=== PATIENT | male | born 1925 | race Caucasian/White ===

== ENCOUNTER 2016-08-15 14:29 | Emergency (ER) | payer MEDICARE ==
[~2016-08-15] VITALS: Ht 177.8 cm; Wt 69.0 kg
[~2016-08-15 14:29] MED LIST: ATOR80TA41 PO; BAYE81TA PO; CALC500 PO; CENTTAB9 PO; CIPR500T4 PO; FLON0.053; METO25 PO; NITR0.4S SL; RAMI2.5C29 PO; SIMV40TA PO
[2016-08-15 15:05] VITALS: BP 168/82; PULSE 73; RESP 16; TEMP 97.8; O2SAT 98
[2016-08-15 15:10] VITALS: O2SAT 98
[2016-08-15] MEDS ORDERED: TETANUS/DIPHTHERIA TOXOID ADULT 0.5 ML VIAL IM ONE (15:15)
[2016-08-15] MEDS ORDERED: SODIUM CHLORIDE 0.9% FLUSH 5 ML FLUSH IVF PRN (15:15)
[2016-08-15] MEDS ORDERED: ISOS20TA PO (15:18)
[2016-08-15] MEDS ORDERED: VITA100064 PO (15:18)
[2016-08-15] MEDS ORDERED: AMLO5TAB2 PO (15:18)
[2016-08-15] MEDS ORDERED: ATOR1TAB18 PO (15:18)
[2016-08-15] MEDS ORDERED: NITR0.4S SL (15:18)
[2016-08-15] MEDS ORDERED: ASPI-110 PO (15:18)
[2016-08-15] MEDS ORDERED: OSCA200T PO (15:18)
[2016-08-15] MEDS ORDERED: METO25TA3 PO (15:18)
[2016-08-15] MEDS ORDERED: ZANT150T2 PO (15:18)
--- NOTE | 2016-08-15 15:21 | PD ---
HPI . Fall Chief Complaint: Fall Time Seen by Provider: 14:56 Travel History International Travel<30 days: No Contact w/Intl Traveler<30days: No Traveled to known affect area: No History of Present Illness HPI Patient presents ambulatory status post a fall in a parking lot. It sounds like he probably had a syncopal event. He does not recall the fall. He remembers waking up to the paramedics over him. He felt fine and refused transport. He drove himself home. Family then found out what happened and brought him to the hospital. He describes very little pain. He does not know the date of his last tetanus shot. He denies any chest pain, nausea, diaphoresis, shortness of breath. No headache or blurred vision. PFSH Past Medical History Blood Disorders: No Heart Rhythm Problems: No Cancer: No Cardiovascular Problems: Yes High Cholesterol: Yes Chest Pain: No Congestive Heart Failure: No Coronary Artery Disease: Yes Diabetes: No Diminished Hearing: Yes ([place]) Endocrine: No Gastrointestinal Disorders: Yes GERD: Yes Genitourinary: No Hypertension: Yes Implanted Vascular Access Dvce: Yes Musculoskeletal: No Neurologic: No Psychiatric: No Respiratory: No Myocardial Infarction: No Sleep Apnea: No Thyroid Disease: No Ulcer: Yes Tetanus Vaccination: < 5 Years Influenza Vaccination: Yes Past Surgical History AICD: No Body Medical Devices: Cardiac stents Cardiac Surgery: Yes (CABG) Eye Surgery: Yes (Rt. cataract) Pacemaker: No Other Surgery: Yes Social History Alcohol Use: No Tobacco Use: No Substance Use: No Allergies-Medications (Allergen,Severity, Reaction): Coded Allergies: Penicillin (Verified Allergy, Severe, Swelling, 08/15/16) Reported Meds & Prescriptions Reported Meds & Active Scripts Active Reported Atorvastatin (Atorvastatin Calcium) 80 Mg Tab 80 Mg PO HS Isosorbide Mononitrate 20 Mg Tab 30 Mg PO DAILY Take 2 doses 7 hours apart. Metoprolol Tartrate 25 Mg Tab 25 Mg PO DAILY Nitrostat SL (Nitroglycerin) 0.4 Mg Subl 0.4 Mg SL DIRECTED PRN 1 tablet under the tongue as needed for chest pain. Repeat every 5 minutes for a total of 3 DOSES or call 911 if NO relief. Amlodipine (Amlodipine Besylate) 5 Mg Tab 5 Mg PO DAILY Aspirin 81 (Aspirin) 81 Mg Tabdr 81 Mg PO DAILY Vitamin D (Cholecalciferol) 1,000 Unit Tab 5,000 Units PO DAILY Zantac (Ranitidine HCl) 150 Mg Tab 150 Mg PO DAILY Oscal 500/200 D-3 (Calcium Carbonate-Vitamin D) 500-200 Mg-Unit Tab 1 Tab PO DAILY Review of Systems Except as stated in HPI: all other systems reviewed are Neg Eyes: No: Blurred Vision HENT: No: Headaches Cardiovascular: No: Chest Pain or Discomfort Respiratory: No: Shortness of Breath Gastrointestinal: No: Nausea, Vomiting Skin: Positive Other (break in the skin, swelling and bruising on the right side of the face) Neurologic: Positive: Syncope, Headache, No: Focal Abnormalities, Change in Mentation, Slurred Speech, Seizures Physical Exam Narrative GENERAL: [place] 89-year-old who is awake and alert and fully oriented and able to give his own history. SKIN: Warm and dry. Bruising, swelling and an abrasion side of his face. He also has some dried blood on the bridge of his nose. HEAD: Normocephalic. EYES: Pupils equal and round. ENT: No nasal bleeding or discharge. Mucous membranes pink and moist. His nose does not seem to be tender. There is no epistaxis. He has some bruising and swelling to the right side of his upper lip. Teeth are intact. NECK: Trachea midline. Neck is nontender and he has full range of motion of the neck without pain. CARDIOVASCULAR: Regular rate and rhythm. Heart sounds are normal. RESPIRATORY: No accessory muscle use. Lungs are clear. GASTROINTESTINAL: Abdomen soft, non-tender, nondistended. MUSCULOSKELETAL: No obvious deformities. No edema. NEUROLOGICAL: Awake and alert. No obvious cranial nerve deficits. Motor grossly within normal limits. Normal speech. PSYCHIATRIC: Appropriate mood and affect; insight and judgment normal. Data Data Last Documented VS Vital Signs Date Time Temp Pulse Resp B/P Pulse Ox O2 Delivery O2 Flow Rate FiO2 08/15/16 16:20 80 16 152/67 97 Room Air 08/15/16 15:05 97.8 Orders Electrocardiogram (08/15/16 15:07) Basic Metabolic Panel (Bmp) (08/15/16 15:07) Complete Blood Count With Diff (08/15/16 15:07) Ckmb (Isoenzyme) Profile (08/15/16 15:07) Troponin I (08/15/16 15:07) Urinalysis - C+S If Indicated (08/15/16 15:07) Ct Brain W/O Iv Contrast(Rout) (08/15/16 15:07) Ecg Monitoring (08/15/16 15:07) Iv Access Insert/Monitor (08/15/16 15:07) Oximetry (08/15/16 15:07) Sodium Chloride 0.9% Flush (Ns Flush) (08/15/16 15:15) Tetanus/Diphtheria Tox Adult (Tetanus/Di (08/15/16 15:15) Ice/Cold Pack (08/15/16 15:07) Ct Facial Bones W/O Iv Cont (08/15/16 15:22) CKMB (08/15/16 15:25) CKMB% (08/15/16 15:25) Labs Laboratory Tests Test 08/15/16 15:25 White Blood Count 9.8 TH/MM3 Red Blood Count 2.68 MIL/MM3 Hemoglobin 8.9 GM/DL Hematocrit 27.3 % Mean Corpuscular Volume 101.9 FL Mean Corpuscular Hemoglobin 33.4 PG Mean Corpuscular Hemoglobin 32.8 % Concent Red Cell Distribution Width 17.3 % Platelet Count 158 TH/MM3 Mean Platelet Volume 9.1 FL Neutrophils (%) (Auto) 71.2 % Lymphocytes (%) (Auto) 16.4 % Monocytes (%) (Auto) 11.0 % Eosinophils (%) (Auto) 0.9 % Basophils (%) (Auto) 0.5 % Neutrophils # (Auto) 7.0 TH/MM3 Lymphocytes # (Auto) 1.6 TH/MM3 Monocytes # (Auto) 1.1 TH/MM3 Eosinophils # (Auto) 0.1 TH/MM3 Basophils # (Auto) 0.0 TH/MM3 CBC Comment DIFF FINAL Differential Comment Sodium Level 146 MEQ/L Potassium Level 4.2 MEQ/L Chloride Level 113 MEQ/L Carbon Dioxide Level 22.2 MEQ/L Anion Gap 11 MEQ/L Blood Urea Nitrogen 73 MG/DL Creatinine 2.50 MG/DL Estimat Glomerular Filtration 24 ML/MIN Rate Random Glucose 127 MG/DL Calcium Level 8.9 MG/DL Total Creatine Kinase 159 U/L Creatine Kinase MB 3.2 NG/ML Troponin I 0.02 NG/ML MDM Medical Decision Making Medical Screen Exam Complete: Yes Emergency Medical Condition: Yes Interpretation(s) EKG shows atrial fibrillation with a controlled ventricular response. EKG is unchanged from previous. Differential Diagnosis My differential diagnosis of syncope includes but is not limited to cardiac arrhythmia, hypovolemia, anemia, neurological catastrophe. Differential diagnosis of facial trauma includes contusion/abrasion, facial fracture. Narrative Course Patient presents with his family for the evaluation of syncope and for injury sustained as a result of the syncope. Labs are remarkable for an H&H of 8.9 and 27.3. It is really not that much different from his H&H in December 2014. BUN is 73 creatinine is 2.5. His creatinine is actually better than the most recent one in our system. Cardiac enzymes are negative. CT head is negative for acute findings. CT of facial bones is also negative. I have discussed disposition options with the patient and his family. The patient would like to go home. At his age, I think that that is a reasonable request. Diagnosis Primary Impression: Syncope Qualified Code: R55 - Syncope, unspecified syncope type Additional Impression: Facial contusion Qualified Code: S00.83XA - Facial contusion, initial encounter Patient Instructions: Facial Contusion (ED), General Instructions Disposition: 01 DISCHARGE HOME Condition: Stable Erica Garcia MD Aug 15, 2016 15:21
[2016-08-15 15:31] LABS: BASOPHIL % 0.5 % (0.0-2.0); EOSINOPHIL # 0.1 TH/MM3 (0-0.4); EOSINOPHIL % 0.9 % (0.0-4.0); HEMATOCRIT 27.3 % (39.0-51.0); HEMO FLAGS DIFF FINAL; LYMPH % 16.4 % (9.0-44.0); LYMPHOCYTE # 1.6 TH/MM3 (1.0-4.8); MEAN CELL VOLUME 101.9 FL (80.0-100.0); MEAN CORPUSCULAR HEMOGLOBIN 33.4 PG (27.0-34.0); MEAN CORPUSCULAR HGB CONC 32.8 % (32.0-36.0); NEUT % 71.2 % (16.0-70.0); PLATELET COUNT 158 TH/MM3 (150-450); RED BLOOD COUNT 2.68 MIL/MM3 (4.50-5.90); RED CELL DISTRIBUTION WIDTH 17.3 % (11.6-17.2); WHITE BLOOD COUNT 9.8 TH/MM3 (4.0-11.0)
[2016-08-15 15:44] LABS: CHLORIDE 113 MEQ/L (98-107); POTASSIUM 4.2 MEQ/L (3.5-5.1); SODIUM (NA) 146 MEQ/L (136-145)
[2016-08-15 15:48] LABS: ANION GAP 11 MEQ/L (5-15); BICARBONATE 22.2 MEQ/L (21.0-32.0); BLOOD UREA NITROGEN 73 MG/DL (7-18)
[2016-08-15 15:51] LABS: GLOMERULAR FILTRATION RATE 24 ML/MIN (>89)
[2016-08-15 15:54] LABS: CREATINE KINASE 159 U/L (39-308)
[2016-08-15 16:07] LABS: CKMB 3.2 NG/ML (0.5-3.6)
--- NOTE | 2016-08-15 16:15 | RADHPO ---
EXAM DATE/TIME: 08/15/2016 15:44 [facility] COMPARISON: No previous studies available for comparison. INDICATIONS : Synope with fall. Loss of consciousness. Right frontal head trauma. RADIATION DOSE: 65.46 CTDIvol (mGy) MEDICAL HISTORY : Hypertension. SURGICAL HISTORY : Right cataract. ENCOUNTER: Initial ACUITY: 1 day PAIN SCALE: 7/10 LOCATION: Right frontal TECHNIQUE: Multiple contiguous axial images were obtained of the head. Using automated exposure control and adjustment of the mA and/or kV according to patient size, radiation dose was kept as low as reasonably achievable to obtain optimal diagnostic quality images. FINDINGS: CEREBRUM: The ventricles are normal for age. No evidence of midline shift, mass lesion, hemorrha ge or acute infarction. No extra-axial fluid collections are seen. POSTERIOR FOSSA: The cerebellum and brainstem are intact. The 4th ventricle is midline. The cer ebellopontine angle is unremarkable. EXTRACRANIAL: The visualized portion of the orbits is intact. SKULL: The calvaria is intact. No evidence of skull fracture. CONCLUSION: Negative for acute process. Zane Hernandez MD FACR on August 15, 2016 at 16:13 Board Certified Radiologist. This report was verified electronically.
[2016-08-15 16:20] VITALS: BP 152/67; PULSE 80; RESP 16; O2SAT 97
--- NOTE | 2016-08-15 16:26 | RADHPO ---
EXAM DATE/TIME: 08/15/2016 15:44 [facility] COMPARISON: No previous studies available for comparison. INDICATIONS : Syncope with fall. Mid to right facial trauma. RADIATION DOSE: 35.43 CTDIvol (mGy) MEDICAL HISTORY : Hypertension. SURGICAL HISTORY : Right cataract. ENCOUNTER: Initial ACUITY: 1 day PAIN SCORE: 7/10 LOCATION: Right facial TECHNIQUE: Volumetric scanning of the facial bones was performed. Using automated exposure control and adjustme nt of the mA and/or kV according to patient size, radiation dose was kept as low as reasonably achiev able to obtain optimal diagnostic quality images. FINDINGS: CT scan of the facial bones was obtained. There is soft-tissue swelling over the nose without a fracture of the superior inferior nasal spine. Mandible and maxilla are intact. Sinuses are clear. CONCLUSION: Negative CT scan of the facial bones. Zane Hernandez MD FACR on August 15, 2016 at 16:18 Board Certified Radiologist. This report was verified electronically.
--- NOTE | 2016-08-15 22:52 | EKG ---
Date Performed: 08/15/2016 Time Performed: 16:00:30 PTAGE: 89 years EKG: Atrial fibrillation Left anterior fascicular block Possible left ventricular hypertrophy Ab normal ECG PREVIOUS TRACING : 12/18/2014 11.41 Previously sinus bradycardia DOCTOR: Reagan Kidd Interpretating Date/Time 08/15/2016 22:50:04
== END 2016-08-15 17:20 | disposition home or self-care (01) ==
LOC: PHED 14:29
DX: R55 Syncope and collapse (principal); S00.83XA Contusion of other part of head, initial encounter; E78.00 Pure hypercholesterolemia, unspecified; I25.10 Atherosclerotic heart disease of native coronary artery without angina pectoris; I10 Essential (primary) hypertension; K21.9 Gastro-esophageal reflux disease without esophagitis; Z95.1 Presence of aortocoronary bypass graft; I48.91 Unspecified atrial fibrillation; I44.4 Left anterior fascicular block; Z23 Encounter for immunization; Y92.481 Parking lot as the place of occurrence of the external cause; W19.XXXA Unspecified fall, initial encounter
CPT/HCPCS: 70450; 70486; 80048; 82550; 82552; 84484; 85025; 90471; 90714; 93005

== ENCOUNTER 2017-03-03 17:44 | Inpatient (IN) | payer MEDICARE ==
[2017-03-03] VITALS (8 sets, daily range): BP systolic 92–166; BP diastolic 48–92; PULSE 64–120; RESP 18–20; TEMP 98; O2SAT 98–99
[~2017-03-03 17:44] MED LIST changes: +AMLO5TAB2 PO; +ASPI-110 PO; +ATOR1TAB18 PO; -ATOR80TA41 PO; -BAYE81TA PO; -CALC500 PO; -CENTTAB9 PO; -CIPR500T4 PO; -FLON0.053; +ISOS20TA PO; -METO25 PO; +METO25TA3 PO; +OSCA200T PO; -RAMI2.5C29 PO; -SIMV40TA PO; +VITA100064 PO; +ZANT150T2 PO
[2017-03-03] MEDS ORDERED: ASPIRIN 325 MG TAB PO ONE (18:00)
[2017-03-03] MEDS ORDERED: MORPHINE SULFATE 4 MG/ML INJ IV PUSH ONE (18:00)
[2017-03-03] MEDS ORDERED: DILTIAZEM HCL 25 MG/5 ML VIAL IV ONE ×2 (18:00)
[2017-03-03] MEDS ORDERED: SODIUM CHLORIDE 0.9% FLUSH 10 ML FLUSH IVF PRN (18:00)
--- NOTE | 2017-03-03 18:08 | PD ---
HPI Chief Complaint: Chest Pain Time Seen by Provider: 17:55 Travel History International Travel<30 days: No Contact w/Intl Traveler<30days: No Traveled to known affect area: No History of Present Illness HPI The patient is 89 years old. He arrives with chest pain described as a pressure -like sensation retrocardiac and left chest for most of the day. The patient was found by his daughter at home in obvious distress about 1 hour prior to ER arrival and she brought him directly to the ER. He states he felt 9-10/10 chest pain upon arrival to the ER. He's had no shortness of breath. Patient has a history of coronary artery disease with a CABG. Most recent catheterization in our records is from 2005 during which time revascularization with stenting of the heavily calcified distal left main and mid ramus intermediate artery was performed. 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 Patient has been in his normal state of health lately otherwise. He has been compliant with all medications including aspirin. CP radiates to the arms bilaterally. PFSH Past Medical History Hx Anticoagulant Therapy: Yes Blood Disorders: No Heart Rhythm Problems: No Cancer: No Cardiovascular Problems: Yes High Cholesterol: Yes Chest Pain: No Congestive Heart Failure: No Coronary Artery Disease: Yes Diabetes: No Diminished Hearing: Yes ([place]) Endocrine: No Gastrointestinal Disorders: Yes GERD: Yes Genitourinary: No Hypertension: Yes Implanted Vascular Access Dvce: Yes Musculoskeletal: No Neurologic: No Psychiatric: No Respiratory: No Myocardial Infarction: No Sleep Apnea: No Thyroid Disease: No Ulcer: Yes Influenza Vaccination: Yes ?: Not Past Surgical History AICD: No Body Medical Devices: Cardiac stents Cardiac Surgery: Yes (CABG) Eye Surgery: Yes (Rt. cataract) Pacemaker: No Other Surgery: Yes Social History Alcohol Use: No Tobacco Use: No Substance Use: No Allergies-Medications (Allergen,Severity, Reaction): Coded Allergies: Penicillin (Verified Allergy, Severe, Swelling, 03/03/17) Reported Meds & Prescriptions Reported Meds & Active Scripts Active Reported Atorvastatin (Atorvastatin Calcium) 80 Mg Tab 80 Mg PO HS Isosorbide Mononitrate 20 Mg Tab 30 Mg PO DAILY Take 2 doses 7 hours apart. Metoprolol Tartrate 25 Mg Tab 25 Mg PO BID Nitrostat SL (Nitroglycerin) 0.4 Mg Subl 0.4 Mg SL DIRECTED PRN 1 tablet under the tongue as needed for chest pain. Repeat every 5 minutes for a total of 3 DOSES or call 911 if NO relief. Amlodipine (Amlodipine Besylate) 5 Mg Tab 5 Mg PO DAILY Aspirin 81 (Aspirin) 81 Mg Tabdr 81 Mg PO DAILY Vitamin D3 (Cholecalciferol) 1,000 Unit Tab 5,000 Units PO DAILY Zantac (Ranitidine HCl) 150 Mg Tab 150 Mg PO DAILY Review of Systems Except as stated in HPI: all other systems reviewed are Neg General / Constitutional: No: Fever Physical Exam Narrative GENERAL: 89 yo M, WNWD, mild-moderate distress 2/2 pain SKIN: Warm and dry. HEAD: Atraumatic. Normocephalic. EYES: Pupils equal and round. No scleral icterus. No injection or drainage. ENT: No nasal bleeding or discharge. Mucous membranes pink and moist. NECK: Trachea midline. No JVD. CARDIOVASCULAR: Irregular, rate approximately 121. RESPIRATORY: No accessory muscle use. Clear to auscultation. Breath sounds equal bilaterally. GASTROINTESTINAL: Abdomen soft, non-tender, nondistended. Hepatic and splenic margins not palpable. MUSCULOSKELETAL: Extremities without clubbing, cyanosis, or edema. No obvious deformities. NEUROLOGICAL: Awake and alert. No obvious cranial nerve deficits. Motor grossly within normal limits. Five out of 5 muscle strength in the arms and legs. Normal speech. PSYCHIATRIC: Appropriate mood and affect; insight and judgment normal. Data Data Last Documented VS Vital Signs Date Time Temp Pulse Resp B/P Pulse Ox O2 Delivery O2 Flow Rate FiO2 03/03/17 19:04 98.0 64 18 120/58 98 Nasal Cannula 2 VS reviewed Orders Electrocardiogram (03/03/17 17:55) Ckmb (Isoenzyme) Profile (03/03/17 17:55) Complete Blood Count With Diff (03/03/17 17:55) Comprehensive Metabolic Panel (03/03/17 17:55) Magnesium (Mg) (03/03/17 17:55) Prothrombin Time / Inr (Pt) (03/03/17 17:55) Act Partial Throm Time (Ptt) (03/03/17 17:55) Troponin I (03/03/17 17:55) Lipase (03/03/17 17:55) Chest, Single Ap (03/03/17 17:55) Ecg Monitoring (03/03/17 17:55) Iv Access Insert/Monitor (03/03/17 17:55) Oximetry (03/03/17 17:55) Oxygen Administration (03/03/17 17:55) Aspirin (Aspirin) (03/03/17 18:00) Morphine Inj (Morphine Inj) (03/03/17 18:00) Sodium Chloride 0.9% Flush (Ns Flush) (03/03/17 18:00) Diltiazem Inj (Cardizem Inj) (03/03/17 18:00) Diltiazem Inj (Cardizem Inj) (03/03/17 18:00) Electrocardiogram (03/03/17 ) CKMB (03/03/17 17:55) CKMB% (03/03/17 17:55) Heparin Infusion SUSHIL.Q1H (03/03/17 18:41) Heparin Inj (Heparin Inj) (03/03/17 18:45) Heparin Inj (Heparin Inj) (03/04/17 00:45) Heparin Inj (Heparin Inj) (03/04/17 00:45) Heparin-D5w Inj (Heparin-D5w Inj) (03/03/17 18:45) Cbc No Diff, Includes Plts (03/06/17 06:00) Occult Blood (Hemoccult) Stool (03/03/17 18:41) B-Type Natriuretic Peptide (03/03/17 18:52) Ondansetron Inj (Zofran Inj) (03/03/17 19:00) Prothrombin Time / Inr (Pt) (03/03/17 19:12) Act Partial Throm Time (Ptt) (03/03/17 19:12) Type And Screen (03/03/17 19:12) Potassium, Serum (K) (03/03/17 19:16) Admit Order (Ed Use Only) (03/03/17 19:53) Labs Laboratory Tests Test 03/03/17 03/03/17 03/03/17 03/03/17 17:55 19:05 19:25 19:32 White Blood Count 10.1 TH/MM3 Red Blood Count 2.51 MIL/MM3 Hemoglobin 8.6 GM/DL Hematocrit 26.8 % Mean Corpuscular Volume 106.9 FL Mean Corpuscular Hemoglobin 34.5 PG Mean Corpuscular Hemoglobin 32.3 % Concent Red Cell Distribution Width 19.8 % Platelet Count 241 TH/MM3 Mean Platelet Volume 9.6 FL Neutrophils (%) (Auto) 71.9 % Lymphocytes (%) (Auto) 18.7 % Monocytes (%) (Auto) 7.4 % Eosinophils (%) (Auto) 1.1 % Basophils (%) (Auto) 0.9 % Neutrophils # (Auto) 7.3 TH/MM3 Lymphocytes # (Auto) 1.9 TH/MM3 Monocytes # (Auto) 0.7 TH/MM3 Eosinophils # (Auto) 0.1 TH/MM3 Basophils # (Auto) 0.1 TH/MM3 CBC Comment AUTO DIFF Differential Comment AUTO DIFF CONFIRMED Target Cells 1+ Ovalocytes 1+ Acanthocytes 1+ Keratocytes 1+ Prothrombin Time 139.1 SEC 145.3 SEC Prothromb Time International 11.3 RATIO 11.8 RATIO Ratio Activated Partial 79.0 SEC 83.5 SEC Thromboplast Time Sodium Level 140 MEQ/L Potassium Level 5.2 MEQ/L 4.9 MEQ/L Chloride Level 109 MEQ/L Carbon Dioxide Level 16.6 MEQ/L Anion Gap 14 MEQ/L Blood Urea Nitrogen 74 MG/DL Creatinine 3.80 MG/DL Estimat Glomerular Filtration 15 ML/MIN Rate Random Glucose 201 MG/DL Calcium Level 9.2 MG/DL Magnesium Level 2.2 MG/DL Total Bilirubin 1.1 MG/DL Aspartate Amino Transf 65 U/L (AST/SGOT) Alanine Aminotransferase 34 U/L (ALT/SGPT) Alkaline Phosphatase 78 U/L Total Creatine Kinase 187 U/L Creatine Kinase MB 8.3 NG/ML Troponin I 0.48 NG/ML Total Protein 8.3 GM/DL Albumin 3.9 GM/DL Lipase 190 U/L B-Type Natriuretic Peptide 420 PG/ML Blood Type O POSITIVE Antibody Screen NEGATIVE Blood Bank Comment MDM Medical Decision Making Medical Screen Exam Complete: Yes Emergency Medical Condition: Yes Differential Diagnosis NSTEMI, unstable angina, coronary vasospasm, PE, PTX, aortic dissection, pericarditis, myocarditis, endocarditis, PNA, esophageal disease, aneurysm, musculoskeletal etiologies, anxiety, cocaine/sympathomimetic abuse Narrative Course CBC & BMP Diagram 03/03/17 17:55 CKMB 8.3 Tn 0.48 LFTs essentially normal EKG: Atrial fibrillation with RVR, rate 121, ST depressions in all leads except III and aVF, ST elevations in V1 and aVR Repeat EKG: sinus, rate 64, ST changes in multiple leads, markedly decreased compared to prior Patient received 20 mg of Cardizem, 2 mg of morphine and oxygen shortly following arrival. His heart rate decreased from 121 to 64 and converted to sinus rhythm. Following rate decreased the chest pain severity decreased from 9 /10 to less than 5/10 arm pain resolved. Blood pressure also decreased from about 190/102 approximately 100/60. 1847: pt reports chest discomfort is "much better." HR is 64 and BP 107/64. Cardiology called. case d/w Dr Welsh, oncoming physician. plan for admission [facility]. Critical Care Narrative Aggregate critical care time was 40 minutes. Time to perform other separately billable procedures was not included in the critical care time. My time did not include minutes spent treating any other patients simultaneously or on activities that did not directly contribute to the patient's treatment. The services I provided to this patient were to treat and/or prevent clinically significant deterioration that could result in: Cardiopulmonary arrest I provided critical care services requiring my management, as noted below: Chart data review, documentation time, medication orders and management, vital sign assessments/reviewing monitor data, ordering and reviewing lab tests, ordering and interpreting/reviewing x-rays and diagnostic studies, care of the patient and discussion of the patient with the admitting physicians. Diagnosis Primary Impression: CKD (chronic kidney disease), stage V Additional Impressions: Hyperkalemia Atrial fibrillation with RVR Admitting Information Admitting Physician Requests: it Chucho Kidd MD Mar 03, 2017 18:08
[2017-03-03 18:16] LABS: AUTOMATED NEUTROPHIL # 7.3 TH/MM3 (1.8-7.7); BASOPHIL # 0.1 TH/MM3 (0-0.2); BASOPHIL % 0.9 % (0.0-2.0); EOSINOPHIL # 0.1 TH/MM3 (0-0.4); EOSINOPHIL % 1.1 % (0.0-4.0); HEMATOCRIT 26.8 % (39.0-51.0); LYMPH % 18.7 % (9.0-44.0); LYMPHOCYTE # 1.9 TH/MM3 (1.0-4.8); MEAN CELL VOLUME 106.9 FL (80.0-100.0); MEAN CORPUSCULAR HEMOGLOBIN 34.5 PG (27.0-34.0); MEAN CORPUSCULAR HGB CONC 32.3 % (32.0-36.0); MONO % 7.4 % (0.0-8.0); NEUT % 71.9 % (16.0-70.0); PLATELET COUNT 241 TH/MM3 (150-450); RED BLOOD COUNT 2.51 MIL/MM3 (4.50-5.90); RED CELL DISTRIBUTION WIDTH 19.8 % (11.6-17.2); WHITE BLOOD COUNT 10.1 TH/MM3 (4.0-11.0)
[2017-03-03 18:19] LABS: CHLORIDE 109 MEQ/L (98-107); SODIUM (NA) 140 MEQ/L (136-145)
[2017-03-03 18:23] LABS: ANION GAP 14 MEQ/L (5-15); BICARBONATE 16.6 MEQ/L (21.0-32.0); BLOOD UREA NITROGEN 74 MG/DL (7-18); HEMO FLAGS AUTO DIFF; MAGNESIUM 2.2 MG/DL (1.5-2.5)
[2017-03-03 18:26] LABS: ALT (GPT) 34 U/L (12-78); AST (GOT) 65 U/L (15-37); GLOMERULAR FILTRATION RATE 15 ML/MIN (>89)
[2017-03-03 18:28] LABS: POTASSIUM 5.2 MEQ/L (3.5-5.1); TOTAL BILIRUBIN ADULT 1.1 MG/DL (0.2-1.0)
[2017-03-03 18:29] LABS: ALKALINE PHOSPHATASE 78 U/L (45-117); CREATINE KINASE 187 U/L (39-308)
[2017-03-03 18:41] LABS: ACANTHOCYTES 1+ (NORMAL); CKMB 8.3 NG/ML (0.5-3.6); KERATOCYTES 1+ (NORMAL); OVALOCYTES 1+ (NORMAL); SCAN/DIFF AUTO DIFF CONFIRMED; TARGET CELLS 1+ (NORMAL)
[2017-03-03] MEDS ORDERED: HEPARIN-D5W INJ 250 ML IV SCH (18:45)
[2017-03-03] MEDS ORDERED: HEPARIN SODIUM - IV 10,000 UNITS/10 ML VIAL IV ONE (18:45)
--- NOTE | 2017-03-03 18:53 | RADRPT ---
EXAM DATE/TIME: 03/03/2017 18:45 [facility] COMPARISON: No previous studies available for comparison. INDICATIONS : Chest tightness. MEDICAL HISTORY : Hypertension. SURGICAL HISTORY : None. ENCOUNTER: Initial ACUITY: 1 day PAIN SCORE: 3/10 LOCATION: Bilateral chest FINDINGS: A single view of the chest demonstrates cardiomegaly with bibasilar airspace disease. Increased pulmo nary scleroti. Status post CABG. Osseous structures are intact. CONCLUSION: 1. Cardiomegaly with bibasilar airspace disease could be mild edema. 2. Increased pulmonary vascularity and previous CABG. Willy Bhatia MD on March 03, 2017 at 18:51 Board Certified Radiologist. This report was verified electronically.
[2017-03-03] MEDS ORDERED: ONDANSETRON HCL 4 MG/2 ML VIAL IV PUSH ONE (19:00)
[2017-03-03 19:13] LABS: INTERNATIONAL NORMALIZED RATIO 11.3 RATIO
[2017-03-03 19:14] LABS: PROTHROMBIN TIME - PATIENT 139.1 SEC (9.8-11.6)
--- NOTE | 2017-03-03 19:28 | PD ---
Physical Exam Narrative Patient was seen by ED physician and signed out to me. Patient has history of anemia and has been seen by and received Procrit last week. Patient has history of chronic kidney disease and has been seen by Dr. Dior. Patient has been seen by Dr. Ramirez his manager distribution. Patient is chest pain-free now. Data Data Last Documented VS Vital Signs Date Time Temp Pulse Resp B/P Pulse Ox O2 Delivery O2 Flow Rate FiO2 03/03/17 19:04 98.0 64 18 120/58 98 Nasal Cannula 2 Orders Electrocardiogram (03/03/17 17:55) Ckmb (Isoenzyme) Profile (03/03/17 17:55) Complete Blood Count With Diff (03/03/17 17:55) Comprehensive Metabolic Panel (03/03/17 17:55) Magnesium (Mg) (03/03/17 17:55) Prothrombin Time / Inr (Pt) (03/03/17 17:55) Act Partial Throm Time (Ptt) (03/03/17 17:55) Troponin I (03/03/17 17:55) Lipase (03/03/17 17:55) Chest, Single Ap (03/03/17 17:55) Ecg Monitoring (03/03/17 17:55) Iv Access Insert/Monitor (03/03/17 17:55) Oximetry (03/03/17 17:55) Oxygen Administration (03/03/17 17:55) Aspirin (Aspirin) (03/03/17 18:00) Morphine Inj (Morphine Inj) (03/03/17 18:00) Sodium Chloride 0.9% Flush (Ns Flush) (03/03/17 18:00) Diltiazem Inj (Cardizem Inj) (03/03/17 18:00) Diltiazem Inj (Cardizem Inj) (03/03/17 18:00) Electrocardiogram (03/03/17 ) CKMB (03/03/17 17:55) CKMB% (03/03/17 17:55) Heparin Infusion SUSHIL.Q1H (03/03/17 18:41) Heparin Inj (Heparin Inj) (03/03/17 18:45) Heparin Inj (Heparin Inj) (03/04/17 00:45) Heparin Inj (Heparin Inj) (03/04/17 00:45) Heparin-D5w Inj (Heparin-D5w Inj) (03/03/17 18:45) Cbc No Diff, Includes Plts (03/06/17 06:00) Act Partial Throm Time (Ptt) (03/04/17 01:41) Occult Blood (Hemoccult) Stool (03/03/17 18:41) B-Type Natriuretic Peptide (03/03/17 18:52) Ondansetron Inj (Zofran Inj) (03/03/17 19:00) Prothrombin Time / Inr (Pt) (03/03/17 19:12) Act Partial Throm Time (Ptt) (03/03/17 19:12) Type And Screen (03/03/17 19:12) Potassium, Serum (K) (03/03/17 19:16) Labs Laboratory Tests Test 03/03/17 03/03/17 03/03/17 17:55 19:05 19:32 White Blood Count 10.1 TH/MM3 Red Blood Count 2.51 MIL/MM3 Hemoglobin 8.6 GM/DL Hematocrit 26.8 % Mean Corpuscular Volume 106.9 FL Mean Corpuscular Hemoglobin 34.5 PG Mean Corpuscular Hemoglobin 32.3 % Concent Red Cell Distribution Width 19.8 % Platelet Count 241 TH/MM3 Mean Platelet Volume 9.6 FL Neutrophils (%) (Auto) 71.9 % Lymphocytes (%) (Auto) 18.7 % Monocytes (%) (Auto) 7.4 % Eosinophils (%) (Auto) 1.1 % Basophils (%) (Auto) 0.9 % Neutrophils # (Auto) 7.3 TH/MM3 Lymphocytes # (Auto) 1.9 TH/MM3 Monocytes # (Auto) 0.7 TH/MM3 Eosinophils # (Auto) 0.1 TH/MM3 Basophils # (Auto) 0.1 TH/MM3 CBC Comment AUTO DIFF Differential Comment AUTO DIFF CONFIRMED Target Cells 1+ Ovalocytes 1+ Acanthocytes 1+ Keratocytes 1+ Prothrombin Time 139.1 SEC Prothromb Time International 11.3 RATIO Ratio Activated Partial 79.0 SEC Thromboplast Time Sodium Level 140 MEQ/L Potassium Level 5.2 MEQ/L 4.9 MEQ/L Chloride Level 109 MEQ/L Carbon Dioxide Level 16.6 MEQ/L Anion Gap 14 MEQ/L Blood Urea Nitrogen 74 MG/DL Creatinine 3.80 MG/DL Estimat Glomerular Filtration 15 ML/MIN Rate Random Glucose 201 MG/DL Calcium Level 9.2 MG/DL Magnesium Level 2.2 MG/DL Total Bilirubin 1.1 MG/DL Aspartate Amino Transf 65 U/L (AST/SGOT) Alanine Aminotransferase 34 U/L (ALT/SGPT) Alkaline Phosphatase 78 U/L Total Creatine Kinase 187 U/L Creatine Kinase MB 8.3 NG/ML Troponin I 0.48 NG/ML Total Protein 8.3 GM/DL Albumin 3.9 GM/DL Lipase 190 U/L B-Type Natriuretic Peptide 420 PG/ML MDM Supervised Visit with EREN: No Narrative Course I spoke with Dr. Mora, covering for Dr. Ramirez. Advised medical admission to the main hospital, consult Dr. Ramirez, Cardicassie drip as needed for A. fib RVR. Continue all medication including amlodipine and metoprolol. Diagnosis Primary Impression: Chest pain Qualified Code: R07.9 - Chest pain, unspecified type Additional Impressions: Atrial fibrillation with RVR Anemia Qualified Code: D64.9 - Anemia, unspecified type CKD (chronic kidney disease), stage V Metabolic acidosis Coagulopathy Jimenez Welsh MD Mar 03, 2017 19:28
[2017-03-03 19:59] LABS: APTT (PATIENT) 83.5 SEC (24.3-30.1)
[2017-03-03 20:00] LABS: PROTHROMBIN TIME - PATIENT 145.3 SEC (9.8-11.6)
[2017-03-03 20:02] LABS: INTERNATIONAL NORMALIZED RATIO 11.8 RATIO
[2017-03-03] MEDS ORDERED: NALOXONE HCL 0.4 MG/ML AMP IV PRN (21:00)
[2017-03-03] MEDS ORDERED: PHYTONADIONE 5 MG TAB PO ONE (21:00)
[2017-03-03] MEDS ORDERED: SODIUM CHLORIDE 0.9% FLUSH 10 ML FLUSH IV FLUSH PRN (21:00)
[2017-03-03 22:40] LABS: BLOOD, URINE LARGE (NEG); GLUCOSE,URINE NEG (NEG); KETONE, URINE NEG (NEG); NITRITE,URINE NEG (NEG)
[2017-03-03 22:54] LABS: MUCUS URINE OCC /lpf (OCC); URINE COLOR YELLOW (YELLW/STRAW)
[2017-03-03 22:56] LABS: RBC, URINE 100-200 /hpf (0-3); SQUAMOUS EPITHELIAL CELL URINE 0-5 /hpf (0-5)
[2017-03-03 22:57] LABS: COMMENT (UR) CULTURE INDICATED; CULTURE IF INDICATED CULTURE INDICATED
[2017-03-04] VITALS (9 sets, daily range): BP systolic 113–149; BP diastolic 61–79; PULSE 61–133; RESP 16–20; TEMP 97.3–99.2; O2SAT 93–98
[2017-03-04] MEDS ORDERED: HEPARIN SODIUM - IV 10,000 UNITS/10 ML VIAL IV PRN ×2 (00:45)
[2017-03-04] MEDS ORDERED: FUROSEMIDE 20 MG/2 ML VIAL IV PUSH ONE (02:15)
--- NOTE | 2017-03-04 02:29 | HHI.HP ---
HPI Service [facility] Primary Care Physician Neo Meade MD Admission Diagnosis chest pain. A. fib with RVR. Chronic kidney disease. Metabolic ac Diagnoses: (1) Elevated troponin I level (2) Atrial fibrillation with RVR (3) Acute congestive heart failure Chief Complaint: Chest pain and bilateral arm numbness with arm pain Travel History International Travel<30 Days: No Contact w/Intl Traveler <30 Da: No Traveled to Known Affected Are: No History of Present Illness Written by Radha Odom, acting as scribe for Dr. Sargent on 03/04/17 at 02:29. Patient seen upon transfer to [facility] from [facility] Chest pain with bilateral arms numb and painful c/o palpitations Productive cough; hemoptysis today only Nausea/vomiting complaining of epigastric pain Denies black or bloody stool Takes aspirin at home Review of Systems Except as stated in HPI: all other systems reviewed are Neg Past Family Social History Past Medical History Hypertension CAD with stent adn CABG CKD Anemia Denies diabetes mellitus, CHF, liver problems, DVT, PE, CVA, seizure, thyroid problems, prostate problems . Past Surgical History CABG . Reported Medications Reported Meds & Active Scripts Active Reported Atorvastatin (Atorvastatin Calcium) 80 Mg Tab 80 Mg PO HS Isosorbide Mononitrate 20 Mg Tab 30 Mg PO DAILY Take 2 doses 7 hours apart. Metoprolol Tartrate 25 Mg Tab 25 Mg PO BID Nitrostat SL (Nitroglycerin) 0.4 Mg Subl 0.4 Mg SL DIRECTED PRN 1 tablet under the tongue as needed for chest pain. Repeat every 5 minutes for a total of 3 DOSES or call 911 if NO relief. Amlodipine (Amlodipine Besylate) 5 Mg Tab 5 Mg PO DAILY Aspirin 81 (Aspirin) 81 Mg Tabdr 81 Mg PO DAILY Vitamin D3 (Cholecalciferol) 1,000 Unit Tab 5,000 Units PO DAILY Zantac (Ranitidine HCl) 150 Mg Tab 150 Mg PO DAILY . Allergies: Coded Allergies: Penicillin (Verified Allergy, Severe, Swelling, 03/03/17) Active Ordered Medications Current Medications Aspirin (Aspirin) 325 mg ONCE ONCE PO Last administered on 03/03/17 18:02; Start 03/03/17 at 18:00; Stop 03/03/17 at 18:01; Status DC Morphine Sulfate (Morphine Inj) 2 mg ONCE ONCE IV PUSH Last administered on 18:03; Start 03/03/17 at 18:00; Stop 03/03/17 at 18:01; Status DC Sodium Chloride (NS Flush) 2 ml UNSCH PRN IVF FLUSH AFTER USING IV ACCESS Last administered on 03/03/17 18:04; Start 03/03/17 at 18:00; Stop 03/03/17 at 21:12 ; Status DC Diltiazem HCl (Cardizem Inj) 20 mg ONCE ONCE IV Last administered on 18:03; Start 03/03/17 at 18:00; Stop 03/03/17 at 18:01; Status DC Diltiazem HCl (Cardizem Inj) 20 mg ONCE ONCE IV ; Start 03/03/17 at 18:00; Stop 03/03/17 at 18:01; Status DC Heparin Sodium (Porcine) (Heparin Inj) 4,000 units ONCE ONCE IV ; Start at 18:45; Stop 03/03/17 at 20:48; Status DC Heparin Sodium (Porcine) (Heparin Inj) 5,000 units UNSCH PRN IV APTT LESS THAN 25; Start 03/04/17 at 00:45; Stop 03/04/17 at 00:45; Status DC Heparin Sodium (Porcine) 2500 units 2,500 units UNSCH PRN IV APTT 25 TO 39; Start 03/04/17 at 00:45; Stop 03/04/17 at 00:45; Status DC Heparin Sodium/ Dextrose (Heparin-D5W Inj) 250 ml @ 0 mls/hr TITRATE IV ; Start 03/03/17 at 18:45; Stop 03/03/17 at 20:48; Status DC Ondansetron HCl (Zofran Inj) 4 mg ONCE ONCE IV PUSH ; Start 03/03/17 at 19:00; Stop 03/03/17 at 19:01; Status DC Sodium Chloride (NS Flush) 2 ml UNSCH PRN IV FLUSH FLUSH AFTER USING IV ACCESS ; Start 03/03/17 at 21:00 Sodium Chloride (NS Flush) 2 ml BID IV FLUSH ; Start 03/03/17 at 21:00 Naloxone HCl (Narcan Inj) 0.4 mg UNSCH PRN IV SEE LABEL COMMENTS; Start at 21:00 Phytonadione (Mephyton) 5 mg ONCE ONCE PO Last administered on 03/03/17t 21:30 ; Start 03/03/17 at 21:00; Stop 03/03/17 at 21:13; Status DC Phytonadione (Mephyton) 5 mg DAILY PO ; Start 03/04/17 at 09:00; Stop 03/04/17 at 09:00; Status DC Furosemide (Lasix Inj) 20 mg ONCE ONCE IV PUSH ; Start 03/04/17 at 02:15; Stop 03/04/17 at 02:16; Status DC . Family History Not aware of family medical history because family members are scattered around the world . Social History Tobacco: denies Alcohol: denies Illicit drugs: denies . Physical Exam Vital Signs Vital Signs Date Time Temp Pulse Resp B/P Pulse Ox O2 Delivery O2 Flow Rate FiO2 03/04/17 01:31 97.8 90 20 149/76 96 03/04/17 01:05 97.3 82 18 131/61 95 Nasal Cannula 03/04/17 00:04 61 18 123/67 97 Nasal Cannula 2 03/03/17 23:59 Nasal Cannula 2 03/03/17 21:34 Nasal Cannula 2 03/03/17 21:33 81 18 129/64 99 Nasal Cannula 2 03/03/17 20:47 70 18 129/64 99 Nasal Cannula 2 03/03/17 19:04 98.0 64 18 120/58 98 Nasal Cannula 2 03/03/17 19:04 98 Nasal Cannula 2 03/03/17 18:26 64 18 107/53 99 Nasal Cannula 2 03/03/17 18:20 66 18 92/48 99 Nasal Cannula 2 03/03/17 18:13 73 18 120/65 99 Nasal Cannula 2 03/03/17 18:12 18 03/03/17 18:08 111 18 151/85 99 Nasal Cannula 2 03/03/17 17:56 120 99 Nasal Cannula 2 03/03/17 17:55 98.0 120 20 166/92 98 03/03/17 17:50 99 Nasal Cannula 2 Physical Exam GENERAL: This is a very pleasant elderly male patient, in no apparent distress. SKIN: No rashes, ecchymoses or lesions. Cool and dry. HEAD: Atraumatic. Normocephalic. EYES: No scleral icterus. No injection or drainage. ENT: Nose without bleeding, purulent drainage. NECK: Trachea midline. No JVD or lymphadenopathy. CARDIOVASCULAR: Regular rate and rhythm without murmurs, gallops, or rubs. RESPIRATORY: Bibasilar rales. No wheezes or rhonchi. Patient coughed up a moderate amount of dark red blood prior to visit- visualized on tissue collected by RN. GASTROINTESTINAL: Abdomen soft, non-tender, nondistended. No guarding. MUSCULOSKELETAL: Extremities without clubbing, cyanosis, or edema. No calf tenderness. NEUROLOGICAL: Awake and alert. Motor and sensory grossly within normal limits. Normal speech. . Laboratory Laboratory Tests Test 03/03/17 03/03/17 03/03/17 03/03/17 17:55 19:05 19:25 19:32 White Blood Count 10.1 Red Blood Count 2.51 Hemoglobin 8.6 Hematocrit 26.8 Mean Corpuscular Volume 106.9 Mean Corpuscular Hemoglobin 34.5 Mean Corpuscular Hemoglobin 32.3 Concent Red Cell Distribution Width 19.8 Platelet Count 241 Mean Platelet Volume 9.6 Neutrophils (%) (Auto) 71.9 Lymphocytes (%) (Auto) 18.7 Monocytes (%) (Auto) 7.4 Eosinophils (%) (Auto) 1.1 Basophils (%) (Auto) 0.9 Neutrophils # (Auto) 7.3 Lymphocytes # (Auto) 1.9 Monocytes # (Auto) 0.7 Eosinophils # (Auto) 0.1 Basophils # (Auto) 0.1 CBC Comment AUTO DIFF Differential Comment AUTO DIFF CONFIRMED Target Cells 1+ Ovalocytes 1+ Acanthocytes 1+ Keratocytes 1+ Prothrombin Time 139.1 145.3 Prothromb Time International 11.3 11.8 Ratio Activated Partial 79.0 83.5 Thromboplast Time Sodium Level 140 Potassium Level 5.2 4.9 Chloride Level 109 Carbon Dioxide Level 16.6 Anion Gap 14 Blood Urea Nitrogen 74 Creatinine 3.80 Estimat Glomerular Filtration 15 Rate Random Glucose 201 Calcium Level 9.2 Magnesium Level 2.2 Total Bilirubin 1.1 Aspartate Amino Transf 65 (AST/SGOT) Alanine Aminotransferase 34 (ALT/SGPT) Alkaline Phosphatase 78 Total Creatine Kinase 187 Creatine Kinase MB 8.3 Troponin I 0.48 Total Protein 8.3 Albumin 3.9 Lipase 190 B-Type Natriuretic Peptide 420 Blood Type O POSITIVE Antibody Screen NEGATIVE Blood Bank Comment Test 03/03/17 03/03/17 22:35 23:05 Urine Color YELLOW Urine Turbidity MOD Urine pH 5.0 Urine Specific [place] 1.022 Urine Protein 30 Urine Glucose (UA) NEG Urine Ketones NEG Urine Occult Blood LARGE Urine Nitrite NEG Urine Bilirubin NEG Urine Leukocyte Esterase SMALL Urine RBC 100-200 Urine WBC 25-49 Urine WBC Clumps FEW Urine Squamous Epithelial 0-5 Cells Urine Hyaline Casts 3-5 Urine Coarse Granular Casts 6-9 Urine Mucus OCC Microscopic Urinalysis Comment CULTURE INDICATED Total Creatine Kinase 203 Troponin I 2.58 Date/Time Procedure Status Source Growth 03/03/17 22:35 Urine Culture Received Urine Clean Catch Pending Result Diagram: 03/03/17175403/03/[id number] Imaging Last Impressions Chest X-Ray 03/03/171754 Signed Impressions: Service Date/Time: Friday, March 03, 2017 18:45 - CONCLUSION: 1. Cardiomegaly with bibasilar airspace disease could be mild edema. 2. Increased pulmonary vascularity and previous CABG. Willy Bhatia MD Assessment and Plan Problem List: (1) Atrial fibrillation with RVR ICD Code: I48.91 Status: Acute (2) Acute congestive heart failure ICD Code: I50.9 Status: Acute (3) Elevated troponin I level ICD Code: R74.8 Status: Acute Assessment and Plan 89 y/o male presented with chest pain and bilateral upper extremity paresthesias : Atrial fibrillation with RVR - IV Cardizem given in ED - RVR resolved - serial EKGs and cardiac enzymes to r/o ACS as causative factor - Continuous cardiac telemetry to monitor heart rhythm and rate Elevated troponin I - Initial troponin I 0.48 and second is 2.58 - awaiting third Troponin I measurement - consult patient's phlebotomist medical lab assistant Dr. Ramirez - assistance appreciated CHF, acute systolic - Chest x-ray personally reviewed and shows bibasilar airspace disease consistent with pulmonary edema - BNP 420 - Lasix 20 mg IV - closely monitor I and Os and adjust treatments accordingly Supratherapeutic INR - INR 11.8 - only on Baby Aspirin - Vitamin K given - consult hematology - assistance appreciated Epigastric Pain - Protonix drip DVT prophylaxis - SCDs/TEDs This note was transcribed by scribe [Radha Odom]. I, Dr. Autumn Sargent personally performed the history, physical exam, and medical decision making; and confirmed the accuracy of the information in the transcribed note. Authenticated by Dr. Autumn Sargent on 03/04/17 at 02:29. Discussed Condition With ER physician, RN, and patient . Physician Certification 2 Midnight Certification Type: Admission for Inpatient Services Order for Inpatient Services The services are ordered in accordance with Medicare regulations or non- Medicare payer requirements, as applicable. In the case of services not specified as inpatient-only, they are appropriately provided as inpatient services in accordance with the 2-midnight benchmark. Estimated LOS (days): 3 days is the estimated time the patient will need to remain in the hospital, assuming treatment plan goals are met and no additional complications. Post-Hospital Plan: Not yet determined Radha Odom Mar 04, 2017 02:29 Autumn Sargent MD Mar 04, 2017 09:24
[2017-03-04] MEDS: SODIUM CHLORIDE 0.9% FLUSH 10 ML FLUSH IV FLUSH SCH ×3 (02:43→20:15)
[2017-03-04] MEDS: PANTOPRAZOLE INJ 80 MG in SODIUM CHLORIDE 0.9% INJ 100 ML IV SCH ×3 (03:39→23:50)
[2017-03-04 05:47] LABS: AUTOMATED NEUTROPHIL # 8.1 TH/MM3 (1.8-7.7); BASOPHIL # 0.1 TH/MM3 (0-0.2); BASOPHIL % 0.5 % (0.0-2.0); EOSINOPHIL # 0.1 TH/MM3 (0-0.4); EOSINOPHIL % 0.9 % (0.0-4.0); HEMATOCRIT 24.9 % (39.0-51.0); LYMPHOCYTE # 1.2 TH/MM3 (1.0-4.8); MEAN CELL VOLUME 109.4 FL (80.0-100.0); MEAN CORPUSCULAR HGB CONC 32.9 % (32.0-36.0); MONO % 7.8 % (0.0-8.0); NEUT % 78.8 % (16.0-70.0); PLATELET COUNT 185 TH/MM3 (150-450); RED BLOOD COUNT 2.27 MIL/MM3 (4.50-5.90); RED CELL DISTRIBUTION WIDTH 19.7 % (11.6-17.2); WHITE BLOOD COUNT 10.3 TH/MM3 (4.0-11.0)
[2017-03-04 05:48] LABS: HEMO FLAGS DIFF FINAL
[2017-03-04 06:19] LABS: BICARBONATE 17.2 MEQ/L (21.0-32.0); POTASSIUM 4.4 MEQ/L (3.5-5.1)
[2017-03-04] MEDS ORDERED: PHYTONADIONE 5 MG TAB PO SCH (09:00)
[2017-03-04] MEDS: PHYTONADIONE 10 MG/ML VIAL SQ SCH (10:12)
[2017-03-04 10:36] LABS: RETIC % 4.6 % (0.4-3.0); REVIEW FLAG FINAL
[2017-03-04 10:58] LABS: PROTHROMBIN TIME - PATIENT 112.4 SEC (9.8-11.6)
[2017-03-04 11:05] LABS: INTERNATIONAL NORMALIZED RATIO 9.2 RATIO
[2017-03-04 11:19] LABS: RHEUMATOID FACTOR TRIGGER LESS THAN 10.0 IU/ML (0.0-14.9)
[2017-03-04 11:44] LABS: FERRITIN 185 NG/ML (26-388); LDH SERUM 329 U/L (87-241); TRANSFERRIN IRON PROFILE 242 MG/DL (200-360)
[2017-03-04 13:09] LABS: INHIB SCRN PT PATIENT 112.4 SEC (9.8-11.6); INHIBITOR SCRN PT NORMAL 10.6 SEC; INHIBITOR SCRN-PT CONTROL 11.1 SEC
[2017-03-04 13:10] LABS: PT 1PT:1NL 12.5 SEC (9.8-11.6); PT 1PT:4NL 10.9 SEC (9.8-11.6); PT 4PT:1NL 18.4 SEC (9.8-11.6)
[2017-03-04 13:11] LABS: PT 1N:1P 1HR-37C 12.7 SEC (9.8-11.6); PT NORM 1 HR-37C 10.7 SEC
--- NOTE | 2017-03-04 13:55 | PD.CONS ---
HPI Service Nephrology Consult Requested By Dr. Olivares Reason for Consult Acute and chronic kidney disease Primary Care Physician Neo Meade MD History of Present Illness Patient is an 89-year-old white male with history of hypertension, chronic kidney disease stage IV with last GFR of 25 in June 2016, he presented with chest pain and atrial fibrillation with RVR patient is a admitted to cardiac floor last troponin was 2.9, he states that the chest pain comes and goes, he has coronary artery bypass graft. Review of Systems Constitutional: COMPLAINS OF: Fatigue Respiratory: COMPLAINS OF: Shortness of breath Cardiovascular: COMPLAINS OF: Chest pain, Dyspnea on Exertion Past Family Social History Allergies: Coded Allergies: Penicillin (Verified Allergy, Severe, Swelling, 03/03/17) Past Medical History Hypertension Chronic kidney disease Coronary artery disease Hyperlipidemia GERD Past Surgical History CABG Cataract Reported Medications Reported Meds & Active Scripts Active Reported Atorvastatin (Atorvastatin Calcium) 80 Mg Tab 80 Mg PO HS Isosorbide Mononitrate 20 Mg Tab 30 Mg PO DAILY Take 2 doses 7 hours apart. Metoprolol Tartrate 25 Mg Tab 25 Mg PO BID Nitrostat SL (Nitroglycerin) 0.4 Mg Subl 0.4 Mg SL DIRECTED PRN 1 tablet under the tongue as needed for chest pain. Repeat every 5 minutes for a total of 3 DOSES or call 911 if NO relief. Amlodipine (Amlodipine Besylate) 5 Mg Tab 5 Mg PO DAILY Aspirin 81 (Aspirin) 81 Mg Tabdr 81 Mg PO DAILY Vitamin D3 (Cholecalciferol) 1,000 Unit Tab 5,000 Units PO DAILY Zantac (Ranitidine HCl) 150 Mg Tab 150 Mg PO DAILY Active Ordered Medications Current Medications Medications (Trade) Dose Ordered Sig/Jass Route Start Time Stop Time Status Last Admin (NS Flush) 2 ml UNSCH PRN IV FLUSH 03/03/17 21:00 (NS Flush) 2 ml BID IV FLUSH 03/03/17 21:00 03/04/17 09:00 Naloxone HCl 0.4 mg 0.4 mg UNSCH PRN IV 03/03/17 21:00 (Protonix Inj/NS Inj) 100 ml @ 10 mls/hr Q10H IV 03/04/17 03:30 03/04/17 13:46 (Vitamin K Inj) 10 mg DAILY SQ 03/04/17 09:00 03/06/17 09:00 03/04/17 10:12 Family History Noncontributory Social History Denies smoking or alcohol use Physical Exam Vital Signs Vital Signs Date Time Temp Pulse Resp B/P Pulse Ox O2 Delivery O2 Flow Rate FiO2 03/04/17 11:00 98.5 88 16 124/72 97 03/04/17 07:00 97.5 86 18 135/71 97 03/04/17 03:00 98.5 88 20 132/68 94 03/04/17 01:31 97.8 90 20 149/76 96 03/04/17 01:05 97.3 82 18 131/61 95 Nasal Cannula 03/04/17 00:04 61 18 123/67 97 Nasal Cannula 2 03/03/17 23:59 Nasal Cannula 2 03/03/17 21:34 Nasal Cannula 2 03/03/17 21:33 81 18 129/64 99 Nasal Cannula 2 03/03/17 20:47 70 18 129/64 99 Nasal Cannula 2 03/03/17 19:04 98.0 64 18 120/58 98 Nasal Cannula 2 03/03/17 19:04 98 Nasal Cannula 2 03/03/17 18:26 64 18 107/53 99 Nasal Cannula 2 03/03/17 18:20 66 18 92/48 99 Nasal Cannula 2 03/03/17 18:13 73 18 120/65 99 Nasal Cannula 2 03/03/17 18:12 18 03/03/17 18:08 111 18 151/85 99 Nasal Cannula 2 03/03/17 17:56 120 99 Nasal Cannula 2 03/03/17 17:55 98.0 120 20 166/92 98 03/03/17 17:50 99 Nasal Cannula 2 Physical Exam GENERAL: Well-nourished, well-developed patient. SKIN: Warm and dry. HEAD: Normocephalic. EYES: No scleral icterus. No injection or drainage. NECK: Supple, trachea midline. No JVD or lymphadenopathy. CARDIOVASCULAR: S1 and S2 irregularly irregular RESPIRATORY: Bilateral Rales and rhonchi GASTROINTESTINAL: Abdomen soft, non-tender, nondistended. EXTREMITIES: No cyanosis, or edema. NEUROLOGICAL: Awake, alert, and oriented x 3. Non-focal. Laboratory Laboratory Tests Test 03/03/17 03/03/17 03/03/17 03/03/17 17:55 19:05 19:25 19:32 White Blood Count 10.1 Red Blood Count 2.51 Hemoglobin 8.6 Hematocrit 26.8 Mean Corpuscular Volume 106.9 Mean Corpuscular Hemoglobin 34.5 Mean Corpuscular Hemoglobin 32.3 Concent Red Cell Distribution Width 19.8 Platelet Count 241 Mean Platelet Volume 9.6 Neutrophils (%) (Auto) 71.9 Lymphocytes (%) (Auto) 18.7 Monocytes (%) (Auto) 7.4 Eosinophils (%) (Auto) 1.1 Basophils (%) (Auto) 0.9 Neutrophils # (Auto) 7.3 Lymphocytes # (Auto) 1.9 Monocytes # (Auto) 0.7 Eosinophils # (Auto) 0.1 Basophils # (Auto) 0.1 CBC Comment AUTO DIFF Differential Comment AUTO DIFF CONFIRMED Target Cells 1+ Ovalocytes 1+ Acanthocytes 1+ Keratocytes 1+ Prothrombin Time 139.1 145.3 Prothromb Time International 11.3 11.8 Ratio Activated Partial 79.0 83.5 Thromboplast Time Sodium Level 140 Potassium Level 5.2 4.9 Chloride Level 109 Carbon Dioxide Level 16.6 Anion Gap 14 Blood Urea Nitrogen 74 Creatinine 3.80 Estimat Glomerular Filtration 15 Rate Random Glucose 201 Calcium Level 9.2 Magnesium Level 2.2 Total Bilirubin 1.1 Aspartate Amino Transf 65 (AST/SGOT) Alanine Aminotransferase 34 (ALT/SGPT) Alkaline Phosphatase 78 Total Creatine Kinase 187 Creatine Kinase MB 8.3 Troponin I 0.48 Total Protein 8.3 Albumin 3.9 Lipase 190 B-Type Natriuretic Peptide 420 Blood Type O POSITIVE Antibody Screen NEGATIVE Blood Bank Comment Test 03/03/17 03/03/17 03/04/17 03/04/17 22:35 23:05 04:35 10:12 Urine Color YELLOW Urine Turbidity MOD Urine pH 5.0 Urine Specific [place] 1.022 Urine Protein 30 Urine Glucose (UA) NEG Urine Ketones NEG Urine Occult Blood LARGE Urine Nitrite NEG Urine Bilirubin NEG Urine Leukocyte Esterase SMALL Urine RBC 100-200 Urine WBC 25-49 Urine WBC Clumps FEW Urine Squamous Epithelial 0-5 Cells Urine Hyaline Casts 3-5 Urine Coarse Granular Casts 6-9 Urine Mucus OCC Microscopic Urinalysis Comment CULTURE INDICATED Total Creatine Kinase 203 213 Troponin I 2.58 2.99 White Blood Count 10.3 Red Blood Count 2.27 Hemoglobin 8.2 Hematocrit 24.9 Mean Corpuscular Volume 109.4 Mean Corpuscular Hemoglobin 36.0 Mean Corpuscular Hemoglobin 32.9 Concent Red Cell Distribution Width 19.7 Platelet Count 185 Mean Platelet Volume 8.4 Neutrophils (%) (Auto) 78.8 Lymphocytes (%) (Auto) 12.0 Monocytes (%) (Auto) 7.8 Eosinophils (%) (Auto) 0.9 Basophils (%) (Auto) 0.5 Neutrophils # (Auto) 8.1 Lymphocytes # (Auto) 1.2 Monocytes # (Auto) 0.8 Eosinophils # (Auto) 0.1 Basophils # (Auto) 0.1 CBC Comment DIFF FINAL Differential Comment Sodium Level 140 Potassium Level 4.4 Chloride Level 110 Carbon Dioxide Level 17.2 Anion Gap 13 Blood Urea Nitrogen 83 Creatinine 3.60 Estimat Glomerular Filtration 16 Rate Random Glucose 134 Calcium Level 9.2 Reticulocyte Count 4.6 Absolute Reticulocyte Count 100.9 Prothrombin Time 112.4 Prothrombin Time Control 11.1 Prothromb Time International 9.2 Ratio Mix PT Normal Plasma Immediate 10.6 Mix PT Normal Plasma 1 Hour 10.7 Mix PT Patient/Normal 1:4 10.9 Immediate Mix PT Patient/Normal 1:1 12.5 Immediate Mix PT Patient/Normal 1:1 1 12.7 Hr 37c Mix PT Patient/Normal 4:1 18.4 Immediate PT Mixing Studies Interpretation Coagulation Factor Inhibitor Screen Iron Level 63 Total Iron Binding Capacity 339 Percent Iron Saturation 18.6 Ferritin 185 Lactate Dehydrogenase 329 Vitamin B12 Level 937 Folate 18.4 Rheumatoid Factor Screen NEGATIVE Rheumatoid Factor Titer Date/Time Procedure Status Source Growth 03/03/17 22:35 Urine Culture Received Urine Clean Catch Pending Result Diagram: 03/04/1743403/04/[id number] Imaging Last Impressions Chest X-Ray 03/03/17 852 Signed Impressions: Service Date/Time: Friday, March 03, 2017 18:45 - CONCLUSION: 1. Cardiomegaly with bibasilar airspace disease could be mild edema. 2. Increased pulmonary vascularity and previous CABG. Willy Bhatia MD Assessment and Plan Problem List: (1) Acute renal failure Plan: Patient has cardiorenal syndrome and will require Lasix for diureses, control atrial fibrillation with medications Cardiology to follow (2) CKD (chronic kidney disease) stage 4, GFR 15-29 ml/min Plan: Patient creatinine is slowly declining indicating acute renal failure due to cardiac decompensation resume renal diet Avoid nephrotoxins Patient is high risk for dye study (3) Acute congestive heart failure Plan: Diuretics ordered (4) Atrial fibrillation with RVR Plan: Cardiology is consulted (5) Elevated troponin I level Plan: Will follow Donny Dior MD Mar 04, 2017 13:55
[2017-03-04] MEDS: FUROSEMIDE 20 MG/2 ML VIAL IV PUSH SCH ×2 (14:43→18:37)
--- NOTE | 2017-03-04 17:17 | MB ---
cc: CLAUDIO GAYLE DATE OF CONSULTATION: 03/04/2017 HISTORY OF PRESENT ILLNESS Mr. Vega is an 89-year-old white male well known to my practice with a history of coronary artery disease, angina, coronary artery bypass and chronic renal insufficiency. He has developed moderate substernal chest discomfort with bilateral arm numbness and left arm pain yesterday. He had several episodes of pain and also had angina this morning. He complains of occasional dizziness and palpitations and occasional shortness of breath. He has not had any lower extremity edema. PAST MEDICAL HISTORY Positive for - 1. Coronary artery disease. 2. Three-vessel coronary bypass. 3. History of coronary intervention. 4. PET scan in July of 2016 showed anterolateral ischemia. The patient is being treated conservatively due to his renal insufficiency. 5. Hypertension. 6. Dyslipidemia. 7. Moderate ___ insufficiency. 8. Mitral regurgitation. 9. Pulmonary hypertension. MEDICATIONS AT HOME 1. Metoprolol p.r.n. 2. P.r.n. Nitroglycerin. 3. Aspirin. 4. Zantac. 5. Multivitamin. 6. Isosorbide mononitrate. 7. Amlodipine. 8. Atorvastatin. 9. Aspirin. 10. The patient was on Warfarin in the past but decided to discontinue it. ALLERGIES PENICILLIN. SOCIAL HISTORY The patient does not smoke. He does not drink alcohol. He is accompanied by his family. FAMILY HISTORY Negative for heart disease. REVIEW OF SYSTEMS Review of systems is otherwise negative. PHYSICAL EXAMINATION VITAL SIGNS: Blood pressure 124/72, pulse 88 and regular. HEAD, EYES, EARS, NOSE AND THROAT: Negative. NECK: 2+ carotid upstrokes. No bruits. LUNGS: Clear. HEART: Regular with no murmur, gallop or rub. ABDOMEN: Soft. No bruits. EXTREMITIES: Without edema. 2+ positive pulses. NEUROLOGIC: Grossly nonfocal. ELECTROCARDIOGRAM EKG initially yesterday showed atrial fibrillation with rapid ventricle response, left axis, delayed R-wave progression in precordial leads and diffuse ST-T changes. EKG today shows normal sinus rhythm, left axis, left anterior fascicular block and left ventricular hypertrophy. LABORATORY DATA Hemoglobin 8.2, potassium 4.4, creatinine 3.6, magnesium 2.2, CK 203 and 213, troponin 2.58 and 2.99, BNP 420. DIAGNOSES 1. Unstable angina/non-ST elevation myocardial infarction. 2. Coronary artery disease, history of three-vessel coronary artery bypass and coronary intervention. 3. Congestive heart failure. 4. Chronic renal insufficiency, acute exacerbation. 5. Hypertension. 6. Paroxysmal atrial fibrillation. 7. Moderate ____ insufficiency. 8. Moderate pulmonary hypertension. DISPOSITION Mr. Vega presented with unstable angina. This was likely related to his episode of atrial fibrillation with rapid ventricular response. He has a history of three-vessel bypass and abnormal nuclear marker perfusion study in July of 2016. I have been reluctant to proceed with cardiac catheterization unless absolutely necessary given his history of renal insufficiency which appears to be progressive. At this time, the patient is back in sinus rhythm. We will intensify his therapy for angina. I will discuss this with Dr. Dior, his input output clerk. I will follow him for cardiology during his hospitalization. The plan was discussed with the patient and his family. MD KESHAWN Oliveros/THEA /2:31 PM /4:21 PM
--- NOTE | 2017-03-04 17:53 | MB ---
cc: SAUMYA VILLARREAL M.D., ALFEA DATE OF CONSULTATION: 03/04/[address] Olivares REASON FOR CONSULTATION Hematology is consulted to render an opinion regarding patient with anemia and coagulopathy. HISTORY OF PRESENT ILLNESS The patient is a very pleasant 89-year-old male who presented to the hospital with complaint of chest pain, bilateral arm numbness and palpitations. He also noticed mild cough with some blood-tinged sputum yesterday. He has some nausea without vomiting. He has been taking aspirin. Denies taking any other anticoagulation. When he presented to the hospital he was found to have atrial fibrillation with rapid ventricular rate. He also was found to have elevated troponin and congestive heart failure. He has a history of chronic kidney disease and has anemia likely due to chronic kidney disease. He has been seeing Dr. Pedraza. According to his daughter the patient had his first injection of Procrit about a week ago. When he presented to the hospital he was noted to have an INR of 11.8. There is no reported history of bleeding. When I saw him this morning his chest pain had improved and shortness of breath also had improved. He denies any abdominal pain. Denies any melena or hematochezia. Denies dysuria and hematuria. PAST MEDICAL HISTORY 1. Hypertension. 2. Coronary artery disease. 3. Chronic anemia. 4. Chronic kidney disease. 5. Hyperlipidemia. 6. Gastroesophageal reflux disease. PAST SURGICAL HISTORY 1. Coronary bypass graft surgery. 2. Coronary stent placement. 3. Right cataract surgery. FAMILY HISTORY No bleeding disorder. SOCIAL HISTORY Denies tobacco or alcohol use. ALLERGIES PENICILLIN. MEDICATIONS Current medications: 1. Lasix. 2. Vitamin-K. 3. Pantoprazole. REVIEW OF SYSTEMS CONSTITUTIONAL: As above. EYES: Denies any blurry vision, double vision. ENT: No mouth sores or voice changes. CARDIOVASCULAR: As above. RESPIRATORY: As above. GI: Denies any nausea, vomiting, diarrhea or abdominal pain. : Denies dysuria or hematuria. MUSCULOSKELETAL: Negative. HEMATOLOGIC: As above. ENDOCRINE: Negative. DERMATOLOGIC: Negative. PSYCHIATRIC: Negative. NEUROLOGIC: Negative. PHYSICAL EXAMINATION VITAL SIGNS: Temperature 98.5, blood pressure 135/71. O2 saturation 97%. GENERAL: He is alert and oriented x3, in no acute distress. He looks pale. HEENT: Atraumatic, normocephalic. Pupils equal, round and reactive to light. Extraocular muscles intact. No scleral icterus. Dry mucosa. NECK: No thyromegaly. No palpable mass. LYMPHATIC: No palpable cervical, clavicular, axillary or inguinal lymph nodes. CARDIOVASCULAR: Irregular S1 and S2. LUNGS: Clear to auscultation anteriorly. ABDOMEN: Soft, nontender. I could not palpate the liver or spleen. EXTREMITIES: No cyanosis or clubbing. He has 1+ lower extremity edema. No calf tenderness. BACK: No paravertebral tenderness. SKIN: No rash or petechiae. There is a hematoma in his left antecubital area and it is oozing some blood. NEUROLOGIC: Nonfocal. LABORATORY DATA Laboratory data reviewed. ASSESSMENT 1. Coagulopathy. He presented with an INR of 11.3 and repeat test showed INR 11.8. PTT is also elevated at 83.5. He had one dose of vitamin-K, 5 mg orally last night. He has no known history of coagulopathy, however, according to his daughter she had noticed the patient had easy bruising for the last one month. She stated the patient has not been eating very well lately. He has no history of liver disorder. He also denies taking any anticoagulation except for a baby aspirin. Clinically he has no evidence of active bleeding. He has a hematoma in the left antecubital area due to recent phlebotomy and it is oozing some blood. I am going to check a mixing study. I am also going to start him on subcu vitamin-K for now. Due to his congestive heart failure I am a little reluctant in giving him fresh frozen plasma transfusion at this time. If, however, he has any evidence of bleeding I would give him the fresh frozen plasma transfusion. 2. Anemia, which is chronic. He has chronic kidney disease likely the cause for is anemia. He is seeing Dr. Pedraza and was started on Procrit about a week ago. Continue to monitor the hemoglobin for now. I am also going to check his iron and vitamin study. 3. Chronic kidney disease. Awaiting nephrology evaluation. 4. Acute chest syndrome. Awaiting cardiology evaluation. He presented with atrial fibrillation with RVR, now rate-controlled. He also had elevated troponin level and appeared to be in congestive heart failure. His symptoms have improved with diuretic. 5. Hypertension. 6. Hyperlipidemia. RECOMMENDATIONS 1. Check a mixing study. 2. Start him on vitamin-K subcu. 3. Proceed with anemia work-up. 4. Consider giving him fresh frozen plasma if he has any evidence of bleeding. 5. Monitor CBC and coagulation study. Thank you, Dr. Olivares, for asking me to see this patient. MD LISSETH Berrios/HOLLIS /4:26 PM /5:33 PM JUAN CARLOS
[2017-03-04] MEDS: AMIODARONE 200 MG TAB PO SCH (20:15)
[2017-03-04] MEDS: METOPROLOL TARTRATE 25 MG TAB PO SCH (20:15)
--- NOTE | 2017-03-04 20:38 | EKG ---
Date Performed: 03/04/2017 Time Performed: 04:50:22 PTAGE: 89 years EKG: Sinus rhythm Possible left anterior fascicular block Lateral ST-T changes are nonspecific Borderline ECG PREVIOUS TRACING : 03/04/2017 00.11 Compared to prior tracing no significant change DOCTOR: Alyse Ramirez Interpretating Date/Time 03/04/2017 20:38:36
--- NOTE | 2017-03-04 20:51 | EKG ---
Date Performed: 03/04/2017 Time Performed: 00:11:25 PTAGE: 89 years EKG: Sinus rhythm FIRST DEGREE AV BLOCK MARKED LEFT AXIS DEVIATION INTRAVENTRICULAR CONDUCTION DELAY POSSIBLE LATERAL MYOCARDIAL INFARCTION ABNORMAL ECG PREVIOUS TRACING : 03/03/2017 18.16 Compared to prior tracing no significant change DOCTOR: Alyse Ramirez Interpretating Date/Time 03/04/2017 20:50:49
--- NOTE | 2017-03-04 21:08 | EKG ---
Date Performed: 03/03/2017 Time Performed: 18:16:33 PTAGE: 89 years EKG: ECTOPIC ATRIAL RHYTHM MARKED LEFT AXIS DEVIATION LEFT VENTRICULAR HYPERTROPHY AND ST-T HAMMONDS GE ABNORMAL ECG PREVIOUS TRACING : 03/03/2017 17.50 Compared to the previous tracing a fib w RVR no longer pres ent DOCTOR: Alyse Ramirez Interpretating Date/Time 03/04/2017 21:07:44
--- NOTE | 2017-03-04 21:11 | EKG ---
Date Performed: 03/03/2017 Time Performed: 17:50:00 PTAGE: 89 years EKG: ATRIAL FIBRILLATION WITH RAPID VENTRICULAR RESPONSE LEFT ANTERIOR FASCICULAR BLOCK MINIMAL VOLTAGE CRITERIA FOR LVH, CONSIDER NORMAL VARIANT ABNORMAL R WAVE PROGRESSION DIFFUSE ST-T CHANGES AB NORMAL ECG PREVIOUS TRACING : 08/15/2016 16.00 Compared to the previous tracing rate faster, diffuse ST-T changes present DOCTOR: Alyse Ramirez Interpretating Date/Time 03/04/2017 21:10:13
[2017-03-04] MEDS ORDERED: DILTIAZEM HCL 25 MG/5 ML VIAL IV ONE (22:45)
[2017-03-05] VITALS (22 sets, daily range): BP systolic 96–125; BP diastolic 52–69; PULSE 80–130; RESP 18–20; TEMP 97.9–99; O2SAT 93–99
[2017-03-05] MEDS: ISOSORBIDE MONONITRATE 30 MG TAB PO SCH (05:26)
[2017-03-05 06:31] LABS: BICARBONATE 18.2 MEQ/L (21.0-32.0); POTASSIUM 4.2 MEQ/L (3.5-5.1)
[2017-03-05 06:42] LABS: INTERNATIONAL NORMALIZED RATIO 1.8 RATIO; PROTHROMBIN TIME - PATIENT 20.2 SEC (9.8-11.6)
[2017-03-05 07:06] LABS: HEMATOCRIT 22.1 % (39.0-51.0); MEAN CELL VOLUME 107.5 FL (80.0-100.0); MEAN CORPUSCULAR HEMOGLOBIN 35.9 PG (27.0-34.0); MEAN CORPUSCULAR HGB CONC 33.4 % (32.0-36.0); PLATELET COUNT 181 TH/MM3 (150-450); RED BLOOD COUNT 2.06 MIL/MM3 (4.50-5.90); RED CELL DISTRIBUTION WIDTH 19.5 % (11.6-17.2); REVIEW FLAG FINAL; WHITE BLOOD COUNT 11.6 TH/MM3 (4.0-11.0)
[2017-03-05] MEDS: PANTOPRAZOLE INJ 80 MG in SODIUM CHLORIDE 0.9% INJ 100 ML IV SCH (08:32)
[2017-03-05] MEDS: AMIODARONE 200 MG TAB PO SCH ×2 (08:32→20:22)
[2017-03-05] MEDS: PHYTONADIONE 10 MG/ML VIAL SQ SCH (08:32)
[2017-03-05] MEDS: METOPROLOL TARTRATE 25 MG TAB PO SCH ×2 (08:33→20:22)
[2017-03-05] MEDS: FUROSEMIDE 20 MG/2 ML VIAL IV PUSH SCH (08:35)
[2017-03-05] MEDS: SODIUM CHLORIDE 0.9% FLUSH 10 ML FLUSH IV FLUSH SCH ×2 (08:35→20:23)
--- NOTE | 2017-03-05 10:19 | HHI.NPPN ---
Subjective History of Present Illness 89 year old with CKD, Afib, CP Unstable Angina Objective Data Data 03/04/17 03/05/17 19:00 07:00 Intake Total 200 ml 492 ml Output Total 400 ml 775 ml Balance -200 ml -283 ml Intake Oral 200 ml 240 ml IV Total 252 ml Output Urine Total 400 ml 775 ml # Bowel Movements 0 Vital Signs Date Time Temp Pulse Resp B/P Pulse Ox O2 Delivery O2 Flow Rate FiO2 03/05/17 08:00 95 Nasal Cannula 2.00 03/05/17 07:30 97.9 98 18 104/54 95 03/05/17 03:01 99.0 93 18 102/52 93 03/04/17 23:01 99.2 118 18 113/67 93 03/04/17 19:01 99.2 133 18 134/71 98 03/04/17 15:00 106 18 136/79 96 03/04/17 11:00 98.5 88 16 124/72 97 -: 03/05/17 0512 03/05/17 0512 Physical Exam General Appearance: Well Developed Neck Neck Exam: Neck Supple Pulmonary Resp Exam: Decreased Bases Cardiology CV Exam: Regular Integumentary Skin Exam: Clear Extremeties Extremities Exam: No Edema Neurologic Neuro Exam: Alert Assessment/Plan Problem List: (1) Acute renal failure Plan: Patient has cardiorenal syndrome and CKD cr 3.5 UOP Improved decrease Lasix 20 mg IV Daily Unstable angina agree he is high risk for Intervention discussed in detail with family about dialysis if cardiac intervention is planned they declined it and will talk to Attending about Hospice services. (2) CKD (chronic kidney disease) stage 4, GFR 15-29 ml/min Plan: Patient creatinine is slowly declining indicating acute renal failure due to cardiac decompensation Avoid nephrotoxins Patient is high risk for dye study (3) Acute congestive heart failure Plan: Diuretics ordered (4) Atrial fibrillation with RVR Plan: Cardiology is following back in NSR (5) Elevated troponin I level Plan: Will follow Donny Dior MD Mar 05, 2017 10:19
--- NOTE | 2017-03-05 11:09 | PD.ONC.PN ---
Subjective Subjective Remarks Afebrile overnight. Patient resting in bed in nad. No clinical bleeding. bruising on LFA not worsening and no new bruising forming. Objective Data Date Time Temp Pulse Resp B/P Pulse Ox O2 Delivery O2 Flow Rate FiO2 03/05/17 10:00 82 03/05/17 09:00 90 03/05/17 08:00 88 03/05/17 08:00 95 Nasal Cannula 2.00 03/05/17 07:30 97.9 98 18 104/54 95 03/05/17 07:00 88 03/05/17 03:01 99.0 93 18 102/52 93 03/04/17 23:01 99.2 118 18 113/67 93 03/04/17 19:01 99.2 133 18 134/71 98 03/04/17 15:00 106 18 136/79 96 03/04/17 11:00 98.5 88 16 124/72 97 03/05/17 03/05/17 03/05/17 06:59 14:59 22:59 Intake Total 492 ml Output Total 775 ml Balance -283 ml Result Diagram: 03/05/17 0512 03/05/17 0512 Laboratory Results Laboratory Tests Test 03/05/17 03/05/17 05:03 05:12 Prothrombin Time 20.2 SEC Prothromb Time International 1.8 RATIO Ratio Activated Partial 49.0 SEC Thromboplast Time Fibrinogen 412 mg/dL White Blood Count 11.6 TH/MM3 Red Blood Count 2.06 MIL/MM3 Hemoglobin 7.4 GM/DL Hematocrit 22.1 % Mean Corpuscular Volume 107.5 FL Mean Corpuscular Hemoglobin 35.9 PG Mean Corpuscular Hemoglobin 33.4 % Concent Red Cell Distribution Width 19.5 % Platelet Count 181 TH/MM3 Mean Platelet Volume 9.6 FL Sodium Level 139 MEQ/L Potassium Level 4.2 MEQ/L Chloride Level 109 MEQ/L Carbon Dioxide Level 18.2 MEQ/L Anion Gap 12 MEQ/L Blood Urea Nitrogen 86 MG/DL Creatinine 3.56 MG/DL Estimat Glomerular Filtration 16 ML/MIN Rate Random Glucose 134 MG/DL Calcium Level 9.1 MG/DL Phosphorus Level 4.0 MG/DL Albumin 3.4 GM/DL Culture Results Microbiology Date/Time Procedure Status Source Growth 03/03/17 22:35 Urine Culture - Final Complete Urine Clean Catch <10,000 CFU/ML GRAM POSITIVE HAMLET Administered Medications Medications (Trade) Dose Ordered Sig/Jass Route PRN Reason Start Time Stop Time Status Last Admin Dose Admin Sodium Chloride 2 ml 2 ml BID IV FLUSH 03/03/17 21:00 03/05/17 08:35 Pantoprazole Sodium/Sodium Chloride (Protonix Inj/NS Inj) 100 ml @ 10 mls/hr Q10H IV 03/04/17 03:30 03/05/17 08:32 Phytonadione (Vitamin K Inj) 10 mg DAILY SQ 03/04/17 09:00 03/06/17 09:00 03/05/17 08:32 Isosorbide Mononitrate (Imdur) 30 mg DAILY@07 PO 03/05/17 07:00 03/05/17 05:26 Amiodarone HCl (Cordarone) 200 mg Q12HR PO 03/04/17 21:00 03/05/17 08:32 Metoprolol Tartrate (Lopressor) 12.5 mg Q12HR PO 03/04/17 21:00 03/05/17 08:33 Objective Remarks GENERAL: Elderly male sitting up in bed in [place]. SKIN: Warm and dry. tennis ball sized bruise on left forearm and a small bruise on the right forearm. HEAD: Normocephalic. EYES: No injection or drainage. NECK: Supple, trachea midline. CARDIOVASCULAR: +S1/S2 RESPIRATORY: anterior andre clear. GASTROINTESTINAL: Abdomen soft, non-tender, nondistended. EXTREMITIES: No cyanosis. trace edema. MUSCULOSKELETAL: Adequate muscle tone. NEUROLOGICAL: awake and alert, normal speech. moving all extremities. Assessment/Plan Problem List: (1) Coagulopathy Status: Acute Plan: 03/05: INR improved to 1.8 today. PTT also improved to 49. await completion of mixing study. --presented with an INR of 11.3 and repeat test showed INR 11.8. PTT is also elevated at 83.5. --no known history of coagulopathy, however, according to his daughter she had noticed the patient had easy bruising for the last one month. --no history of liver disorder. --denies taking any anticoagulation except for a baby aspirin. Clinically no evidence of active bleeding. H --mixing study. --started on vitamin-K --will need to give FFP judiciously with CHF, recommend giving only for bleeding at this time. (2) Macrocytic anemia Status: Acute Plan: --is chronic. --has chronic kidney disease likely the cause for is anemia. --is seeing Dr. Pedraza and was started on Procrit about a week prior to admission. --B12 WNL --iron studies indicate low serum iron and % saturation but higher ferritin. (3) Acute chest syndrome Status: Acute Plan: --Awaiting cardiology evaluation. --presented with atrial fibrillation with RVR, now rate-controlled. --also had elevated troponin level and appeared to be in congestive heart failure. symptoms have improved with diuretic. Assessment 89y/o male admitted with chest pain, bilateral arm numbness and palpitations, found to be in afib/RVR with CHF and elevated troponin. Hematology consulted for anemia and coagulopathy. h/o Hypertension. Coronary artery disease. Chronic anemia. Chronic kidney disease. hyperlipidemia. Gastroesophageal reflux disease. Plan 1. monitor CBC, coags 2. monitor for bleeding 3. await completion of mixing study--I spoke with the lab/coag tech. it was not completed yesterday due to a questions of the patient having received heparin. however, it will be completed today. Attending Statement The exam, history, and the medical decision-making described in the above note were completed with the assistance of the mid-level provider. I reviewed and agree with the findings presented. I attest that I had a [id number] encounter with the patient on the same day, and personally performed and documented my assessment and findings in the medical record. No bleeding. INR down to 1.8. PTT also trended lower. This is consistent with factor deficiency /vit K deficiency. Continue Vit K supplement. Monitor coags study. Esperanza Whitt Mar 05, 2017 11:09 Sravan Riggs MD Mar 05, 2017 11:56
--- NOTE | 2017-03-05 12:49 | PD.CARD.PN ---
Subjective Subjective Remarks No recurrent angina today, no dyspnea, feels better, wants to go home Objective Medications Current Medications Medications (Trade) Dose Ordered Sig/Jass Route Start Time Stop Time Status Last Admin (NS Flush) 2 ml UNSCH PRN IV FLUSH 03/03/17 21:00 (NS Flush) 2 ml BID IV FLUSH 03/03/17 21:00 03/05/17 08:35 Naloxone HCl 0.4 mg 0.4 mg UNSCH PRN IV 03/03/17 21:00 (Protonix Inj/NS Inj) 100 ml @ 10 mls/hr Q10H IV 03/04/17 03:30 03/05/17 08:32 (Vitamin K Inj) 10 mg DAILY SQ 03/04/17 09:00 03/06/17 09:00 03/05/17 08:32 (Imdur) 30 mg DAILY@07 PO 03/05/17 07:00 03/05/17 05:26 (Cordarone) 200 mg Q12HR PO 03/04/17 21:00 03/05/17 08:32 (Lopressor) 12.5 mg Q12HR PO 03/04/17 21:00 03/05/17 08:33 (Lasix Inj) 20 mg DAILY IV PUSH 03/06/17 09:00 Vital Signs / I&O Vital Signs Date Time Temp Pulse Resp B/P Pulse Ox O2 Delivery O2 Flow Rate FiO2 03/05/17 11:00 98.0 88 20 96/52 99 03/05/17 11:00 99 Nasal Cannula 2.00 03/05/17 11:00 88 03/05/17 10:00 88 03/05/17 09:00 90 03/05/17 08:00 98 03/05/17 08:00 95 Nasal Cannula 2.00 03/05/17 07:30 97.9 98 18 104/54 95 03/05/17 07:00 86 03/05/17 03:01 99.0 93 18 102/52 93 03/04/17 23:01 99.2 118 18 113/67 93 03/04/17 19:01 99.2 133 18 134/71 98 03/04/17 15:00 106 18 136/79 96 I/O 03/04/17 03/04/17 03/04/17 03/05/17 03/05/1703/05/17 06:59 14:59 22:59 06:59 14:59 22:59 Intake Total 0 ml 200 ml 492 ml Output Total 630 ml 400 ml 775 ml Balance -630 ml -200 ml -283 ml Intake Oral 0 ml 200 ml 240 ml IV Total 252 ml Output Urine Total 630 ml 400 ml 775 ml # Bowel Movements 0 Physical Exam GENERAL: In NAD SKIN: Warm and dry. HEAD: Normocephalic. EYES: No scleral icterus. No injection or drainage. NECK: Supple, trachea midline. No JVD or lymphadenopathy. CARDIOVASCULAR: Regular rate and rhythm without murmurs, gallops, or rubs. RESPIRATORY: Breath sounds equal bilaterally. No accessory muscle use. GASTROINTESTINAL: Abdomen soft, non-tender, nondistended. MUSCULOSKELETAL: No cyanosis, or edema. Laboratory Laboratory Tests Test 03/05/17 03/05/17 05:03 05:12 Prothrombin Time 20.2 SEC Prothromb Time International 1.8 RATIO Ratio Activated Partial 49.0 SEC Thromboplast Time Fibrinogen 412 mg/dL White Blood Count 11.6 TH/MM3 Red Blood Count 2.06 MIL/MM3 Hemoglobin 7.4 GM/DL Hematocrit 22.1 % Mean Corpuscular Volume 107.5 FL Mean Corpuscular Hemoglobin 35.9 PG Mean Corpuscular Hemoglobin 33.4 % Concent Red Cell Distribution Width 19.5 % Platelet Count 181 TH/MM3 Mean Platelet Volume 9.6 FL Sodium Level 139 MEQ/L Potassium Level 4.2 MEQ/L Chloride Level 109 MEQ/L Carbon Dioxide Level 18.2 MEQ/L Anion Gap 12 MEQ/L Blood Urea Nitrogen 86 MG/DL Creatinine 3.56 MG/DL Estimat Glomerular Filtration 16 ML/MIN Rate Random Glucose 134 MG/DL Calcium Level 9.1 MG/DL Phosphorus Level 4.0 MG/DL Albumin 3.4 GM/DL Imaging Last Impressions Chest X-Ray 03/03/17 5258 Signed Impressions: Service Date/Time: Friday, March 03, 2017 18:45 - CONCLUSION: 1. Cardiomegaly with bibasilar airspace disease could be mild edema. 2. Increased pulmonary vascularity and previous CABG. Willy Bhatia MD Assessment and Plan Problem List: (1) Unstable angina (2) CAD (coronary artery disease) (3) CKD (chronic kidney disease) stage 4, GFR 15-29 ml/min (4) Atrial fibrillation with RVR (5) Acute congestive heart failure (6) Elevated troponin I level Assessment and Plan No recurrent angina. Continue antianginal tx, if necessary, will titrate Imdur and possibly add Ranexa. Continue amio loading for AF. Increase activity. He has very high risk of contrast nephropathy. Possibly home tomorrow if stable. Will schedule outpt f/u. Alyse Ramirez MD Mar 05, 2017 12:49
[2017-03-05 14:00] LABS: APTT 1PT:1NL 29.4 SEC (24.3-30.1); APTT 1PT:4NL 26.5 SEC (24.3-30.1); INHIBITOR SCREEN-APTT PATIENT 40.6 SEC (24.3-30.1); INHIBITOR SCRN APTT NORMAL 26.2 SEC (24.3-30.1); INHIBITOR SCRN-APTT CONTROL 26.7 SEC
--- NOTE | 2017-03-05 14:23 | HHI.PR ---
Subjective Remarks No pain. No shortness of breath. Objective Vitals Vital Signs Date Time Temp Pulse Resp B/P Pulse Ox O2 Delivery O2 Flow Rate FiO2 03/05/17 13:00 86 03/05/17 12:00 80 03/05/17 11:00 98.0 88 20 96/52 99 03/05/17 11:00 99 Nasal Cannula 2.00 03/05/17 11:00 88 03/05/17 10:00 88 03/05/17 09:00 90 03/05/17 08:00 98 03/05/17 08:00 95 Nasal Cannula 2.00 03/05/17 07:30 97.9 98 18 104/54 95 03/05/17 07:00 86 03/05/17 03:01 99.0 93 18 102/52 93 03/04/17 23:01 99.2 118 18 113/67 93 03/04/17 19:01 99.2 133 18 134/71 98 03/04/17 15:00 106 18 136/79 96 I/O 03/04/17 03/04/17 03/04/17 03/05/17 03/05/17 03/05/17 07:00 15:00 23:00 07:00 15:00 23:00 Intake Total 0 ml 200 ml 492 ml Output Total 630 ml 400 ml 775 ml Balance -630 ml -200 ml -283 ml Intake Oral 0 ml 200 ml 240 ml IV Total 252 ml Output Urine Total 630 ml 400 ml 775 ml # Bowel Movements 0 Result Diagram: 03/05/17 0512 03/05/17 0512 Other Results Item Value Date Time Prothromb Time International Ratio 1.8 RATIO 03/05/17 0503 Objective Remarks GENERAL: This is a well-nourished, well-developed patient, in no apparent distress. CARDIOVASCULAR: Regular rate and irregular rhythm RESPIRATORY: Clear to auscultation. Breath sounds equal bilaterally. No wheezes , rales, or rhonchi. GASTROINTESTINAL: Abdomen soft, non-tender, nondistended. Normal, active bowel sounds MUSCULOSKELETAL: Extremities without clubbing, cyanosis, trace edema NEURO: Alert & Oriented x2 to person, place. Moves all ext x4 A/P Problem List: (1) Atrial fibrillation with RVR ICD Code: I48.91 Status: Acute (2) Acute congestive heart failure ICD Code: I50.9 Status: Acute (3) Elevated troponin I level ICD Code: R74.8 Status: Acute Assessment and Plan 89 y/o male presented with chest pain and bilateral upper extremity paresthesias : Atrial fibrillation with RVRnow rate controlled - Continuous cardiac telemetry to monitor heart rhythm and rate, medical management Elevated troponin I likely due to A. fib with RVRacute coronary syndrome and cardiorenal disease with history of chronic kidney disease stage IV. - Initial troponin I 0.48 and second is 2.58 - awaiting third Troponin I measurement - consult patient's manager support services Dr. Ramirez - assistance appreciated, Medical management due to chronic kidney disease stage IV and high risks of nephrotoxicity with further aggressive treatment. Both patient and family desires conservative treatment. They're agreeable to all have palliative services, to discuss goals of conservative treatment and future long-term goals concerning comfort measures. , CHF, acute systolic - Chest x-ray personally reviewed and shows bibasilar airspace disease consistent with pulmonary edema - Lasix 20 mg IV - closely monitor I and Os and adjust treatments accordingly Supratherapeutic INRappreciate hematology assistance., Status post vitamin K. Monitor INR. Today's INR 1.8. - INR 11.8 - only on Baby Aspirin - Vitamin K given Epigastric Pain - Protonix drip, hemoglobin stable, no signs of active bleed; will stop Protonix drip. DVT prophylaxis - SCDs/TEDs, anticoagulation held due to admitting supratherapeutic INR Discussed with patient and daughters at bedside. DO NOT RESUSCITATE status. Libertad Rivera MD Mar 05, 2017 14:23
[2017-03-05 14:27] LABS: APTT 1N:1P 1HR-37C 30.8 SEC (24.3-30.1); APTT NORM 1 HR-37C 27.7 SEC
[2017-03-05] MEDS ORDERED: LACTULOSE SYRUP 20 GM/30 ML CUP PO PRN (16:45)
[2017-03-05] MEDS ORDERED: SENNOSIDES 8.6 MG TAB PO PRN (16:45)
[2017-03-05] MEDS ORDERED: MAGNESIUM HYDROXIDE SUSP 30 ML CUP PO PRN (16:45)
[2017-03-05] MEDS ORDERED: BISACODYL 10 MG SUPP RECTAL PRN (16:45)
[2017-03-05] MEDS: DOCUSATE SODIUM 50 MG/SENNA 8.6 MG TAB PO SCH (20:22)
[2017-03-05] MEDS: ACETAMINOPHEN 325 MG TAB PO PRN (21:08)
[2017-03-06] VITALS (21 sets, daily range): BP systolic 96–121; BP diastolic 50–62; PULSE 75–101; RESP 18–20; TEMP 97.8–98; O2SAT 92–98
[2017-03-06] MEDS: ACETAMINOPHEN 325 MG TAB PO PRN (02:51)
[2017-03-06] MEDS ORDERED: traMADol HCL 50 MG TAB PO PRN (05:30)
[2017-03-06] MEDS: ISOSORBIDE MONONITRATE 30 MG TAB PO SCH (05:53)
[2017-03-06 05:59] LABS: INTERNATIONAL NORMALIZED RATIO 1.2 RATIO; PROTHROMBIN TIME - PATIENT 13.8 SEC (9.8-11.6)
[2017-03-06] MEDS: AMIODARONE 200 MG TAB PO SCH (08:48)
[2017-03-06] MEDS: DOCUSATE SODIUM 50 MG/SENNA 8.6 MG TAB PO SCH (08:49)
[2017-03-06] MEDS: METOPROLOL TARTRATE 25 MG TAB PO SCH (08:49)
[2017-03-06] MEDS: SODIUM CHLORIDE 0.9% FLUSH 10 ML FLUSH IV FLUSH SCH (08:51)
[2017-03-06] MEDS ORDERED: FUROSEMIDE 20 MG/2 ML VIAL IV PUSH SCH (09:00)
--- NOTE | 2017-03-06 10:27 | PD.CONS ---
Consult Service Palliative Care Consult Requested By Dr Rivera . Primary Care Physician Neo Meade MD Reason for Consultation a. To assist with evaluation and management of symptoms including: b. To assist medical decision maker(s) with: better understanding of current medical conditions; weighing benefits/burdens of medical treatment options; making medical treatment decisions. HPI History of Present Illness This 89-year-old patient presented to the ED on 03/03/17 with reports of chest pain/pressure to the left chest for most of the day. He was found by his daughter at home in obvious distress about 1 hour prior to ED presentation, she brought him directly to the ED. He was reported at 9-10/10 on arrival. Chest pain radiates to arms bilaterally. No shortness of breath reported. Otherwise indicated feeling normal recently. Hospital course: * ED EKG notes atrophic with RVR rate 121, ST depression in multiple leads. Patient received Cardizem, morphine on arrival; heart rate and pain decreased after administration of Cardizem and morphine. Cardiology consulted. WBC 10, hemoglobin 8.6/hematocrit 26.8. BUN 74/friend 3.8, GFR 15. Magnesium 2.2. Total CK 187, CK-MB 8.3, troponin 0.48. BNP 420. Serial troponins pending. INR 11.8, on baby aspirin outpatient. Vitamin K administered. Hematology consulted. CXR= bibasilar airspace disease consistent with pulmonary edema. Nephrology also consulted. Patient admitted for further evaluation and management * Nephrology consultation: Patient w cardiorenal syndrome; Lasix for diuresis, ARF secondary to acute cardiac decompensation avoid nephrotoxins, patient high risk for any dye studies, follow * Cardiology consultation: Well-known to Dr. Ramirez outpatient. Patient with unstable angina likely secondary to episode of atrial flutter with RVR, history of abnormal nuclear marker perfusion study July 2016 however has been reluctant to proceed with cardiac catheter and was actually necessary due to renal insufficiency which appears to be progressive. Medical management at this time. * Hematology consultation: Patient daughter reporting no known history of coagulopathy however has noted patient with easy bruising 1 month. Patient also reporting that eating well. No evidence of active bleeding. Also noted hematoma in left AC area 2/2 to recent phlebotomy. Starting him on subcutaneous vitamin K. Reluctant to give FFP due to CHF. If he develops bleeding will recommend FFP. Chronic anemia, likely secondary CK-MB. Started Procrit about [address] Pedraza. Mixing study pending. * Nephrology continues to follow,patient is high risk for further intervention for angina, would require dialysis, family would not want to proceed with dialysis, nephrology further notes discussion regarding hospice service with attending * 03/05mixing studies still pending PT and INR trending down, consistent with factor deficiency/vitamin K sufficiency, continues vitamin K. Cardiology notes patient with no recurrent angina titrate Imdur possibly add Ranexa. High risk for contrast nephropathy. Possible discharge home, outpatient follow-up with cardiology. Palliative care consulted to assist with long-term goals of treatment, possible comfort measures. Patient seen in room daughter at bedside. Daughter participates in discussion. Patient is alert, pleasant oriented and appropriate. Indicates feeling well overall. Indicates ate breakfast well. ROS essentially negative. Nurses present for part of discussions. . Function/Cognitive Trajectory Lives alone, still driving. Independent with ADLs, no assistive devices. Review of Systems Constitutional: COMPLAINS OF: Sleep problems (some insomnia during hospitalization), DENIES: Fatigue, Fever, Change in appetite, Pain, Generalized weakness Eyes: DENIES: Vision loss Respiratory: COMPLAINS OF: Cough (intermittent though none today), DENIES: Wheezing, Hemoptysis, Sputum production, Shortness of breath Cardiovascular: COMPLAINS OF: Chest pain (intermittent none for the past 2 days ), Dyspnea on Exertion (intermittent), Lower Extremity Edema (prior to admission , improved during hospital course), DENIES: Syncope Gastrointestinal: COMPLAINS OF: Constipation (just during hospital course, relieved yesterday), DENIES: Abdominal pain, Nausea, Vomiting, Difficulty Swallowing, Anorexia, Dyspepsia or heartburn Genitourinary: DENIES: Urinary frequency, Urinary incontinence Musculoskeletal: DENIES: Joint pain, Muscle aches Integumentary: DENIES: Rash Hematologic/Lymphatics: COMPLAINS OF: Bruising Neurologic: DENIES: Abnormal gait, Headache Psychiatric: DENIES: Anxiety, Confusion Past Family Social History Coded Allergies: Penicillin (Verified Allergy, Severe, Swelling, 03/03/17) Past Medical History Hypertension CAD with stent , CABG Dyslipidemia Mitral regurgitation Pulmonary hypertension CKD Anemia . Past Surgical History CABG -three-vessel . Reported Medications Atorvastatin (Atorvastatin Calcium) 80 Mg Tab 80 Mg PO HS Isosorbide Mononitrate 20 Mg Tab 30 Mg PO DAILY Take 2 doses 7 hours apart. Metoprolol Tartrate 25 Mg Tab 25 Mg PO BID Nitrostat SL (Nitroglycerin) 0.4 Mg Subl 0.4 Mg SL DIRECTED PRN 1 tablet under the tongue as needed for chest pain. Repeat every 5 minutes for a total of 3 DOSES or call 911 if NO relief. Amlodipine (Amlodipine Besylate) 5 Mg Tab 5 Mg PO DAILY Aspirin 81 (Aspirin) 81 Mg Tabdr 81 Mg PO DAILY Vitamin D3 (Cholecalciferol) 1,000 Unit Tab 5,000 Units PO DAILY Zantac (Ranitidine HCl) 150 Mg Tab 150 Mg PO DAILY . Current Medications Medications (Trade) Dose Ordered Sig/Jass Route Start Time Stop Time Status Last Admin (NS Flush) 2 ml UNSCH PRN IV FLUSH 03/03/17 21:00 (NS Flush) 2 ml BID IV FLUSH 03/03/17 21:00 03/06/17 08:51 (Narcan Inj) 0.4 mg UNSCH PRN IV 03/03/17 21:00 (Imdur) 30 mg DAILY@07 PO 03/05/17 07:00 03/06/17 05:53 (Cordarone) 200 mg Q12HR PO 03/04/17 21:00 03/06/17 08:48 (Lopressor) 12.5 mg Q12HR PO 03/04/17 21:00 03/06/17 08:49 (Lasix Inj) 20 mg DAILY IV PUSH 03/06/17 09:00 03/06/17 08:51 (Tylenol) 650 mg Q4H PRN PO 03/05/17 14:30 03/06/17 02:51 (Katherine-Colace) 1 tab BID PO 03/05/17 21:00 03/05/17 20:22 (Milk Of Magnesia Liq) 30 ml Q12H PRN PO 03/05/17 16:45 03/05/17 18:25 (Senokot) 17.2 mg Q12H PRN PO 03/05/17 16:45 (Dulcolax Supp) 10 mg DAILY PRN RECTAL 03/05/17 16:45 (Lactulose Liq) 30 ml DAILY PRN PO 03/05/17 16:45 (Ultram) 25 mg Q12H PRN PO 03/06/17 05:30 03/06/17 05:53 Family History family history negative for cardiac disease . Substance Use Tobacco: None Alcohol: None Prescription med abuse: None Illicits: None ,. Psychosocial History . several years ago on hospice services. Patient has lived in [place] 40+ years, prior to that lived in [place]. 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 Lives alone locally. Supported by 3 daughters, 1 son who lives in [place]. Spiritual/Cultural Factors Voodoo Living Will: Completed, but not made available Health Care Surrogate: Completed, but not made available Ethical and Legal Issues Patient currently capacitated and able to participate in decision-making. Supported by 4 adult children, they think one of them might be designated as healthcare surrogate though they are not certain. Per [place] statutes without this documentation legal decision making would fall to majority of adult children. It sounds as if they would all worked together. Physical Exam Vital Signs Date Time Temp Pulse Resp B/P Pulse Ox O2 Delivery O2 Flow Rate FiO2 03/06/17 09:00 99 03/06/17 08:00 80 03/06/17 07:44 92 Room Air 03/06/17 07:41 97.9 80 18 98/50 92 03/06/17 07:00 76 03/06/17 06:00 78 03/06/17 05:00 75 03/06/17 04:00 78 03/06/17 03:51 95 Nasal Cannula 2.00 03/06/17 03:51 98.0 79 20 96/53 95 03/06/17 03:51 20 03/06/17 03:00 80 03/06/17 02:00 82 03/06/17 01:00 94 03/06/17 00:00 101 03/05/17 23:05 98.0 116 20 125/69 94 03/05/17 23:05 94 Nasal Cannula 2.00 03/05/17 23:00 116 03/05/17 22:00 108 03/05/17 21:00 110 03/05/17 20:01 98.1 130 20 120/65 93 03/05/17 20:00 111 03/05/17 20:00 130 03/05/17 20:00 93 Nasal Cannula 2.00 03/05/17 18:35 90 03/05/17 17:05 86 03/05/17 16:00 97 03/05/17 15:05 95 Room Air 03/05/17 15:04 98.3 97 18 113/57 95 03/05/17 15:01 90 03/05/17 14:00 90 03/05/17 13:00 86 03/05/17 12:00 80 03/05/17 11:00 98.0 88 20 96/52 99 03/05/17 11:00 99 Nasal Cannula 2.00 03/05/17 11:00 88 03/05/17 10:00 88 03/05/17 03/06/17 19:00 07:00 Intake Total 540 ml 420 ml Output Total 550 ml 500 ml Balance -10 ml -80 ml Intake Oral 540 ml 420 ml IV Total 0 ml Output Urine Total 550 ml 500 ml Emesis 0 ml # Bowel Movements 1 Exam CONSTITUTIONAL/GENERAL: This is an adequately nourished patient, in no apparent distress, up in a chair at bedside alert and pleasant peripheral IV right upper extremity, nasal cannula O2 TUBES/LINES/DRAINS: SKIN: No jaundice, rashes, or lesions. Several areas of ecchymosis upper extremities. Few small petechiae to bilateral shins. No wounds seen anteriorly. Skin temperature warm. HEAD: Atraumatic. Normocephalic. EYES: Pupils equal and round and reactive. Extraocular motions intact. No scleral icterus. No injection or drainage. Fundi not examined. ENT: Hearing grossly normal. Nose without bleeding or purulent drainage. Throat without visible erythema, exudates, masses, or lesions. NECK: Trachea midline. Supple, nontender. No palpable thyroid enlargement or nodularity. CARDIOVASCULAR: Irregular rate. No murmurs.No JVD. Peripheral pulses symmetric. No peripheral edema. RESPIRATORY/CHEST: Symmetric, unlabored respirations. On 2 L nasal cannula Clear to auscultation. Breath sounds equal bilaterally GASTROINTESTINAL: Abdomen soft, non-tender, nondistended. No hepato-splenomegaly , or palpable masses. No guarding. Bowel sounds present. GENITOURINARY: Without palpable bladder distension. MUSCULOSKELETAL: Extremities without clubbing, cyanosis, or edema. No joint tenderness or effusion noted. No calf tenderness. No mottling or clubbing. NEUROLOGICAL: Awake and alert. Oriented 3, pleasant and cooperative. Insight appears to be good. Motor and sensory grossly within normal limits. Follows commands. Cognitively sharp. Moves all extremities. PSYCHIATRIC: No obvious anxiety/depression. no apparent hallucinations or other psychotic thought process. Diagnostic Tests Laboratory Laboratory Tests Test 03/03/17 03/03/17 03/03/17 03/03/17 17:55 19:05 19:25 19:32 White Blood Count 10.1 TH/MM3 (4.0-11.0) Red Blood Count 2.51 MIL/MM3 (4.50-5.90) Hemoglobin 8.6 GM/DL (13.0-17.0) Hematocrit 26.8 % (39.0-51.0) Mean Corpuscular Volume 106.9 FL (80.0-100.0) Mean Corpuscular Hemoglobin 34.5 PG (27.0-34.0) Mean Corpuscular Hemoglobin 32.3 % Concent (32.0-36.0) Red Cell Distribution Width 19.8 % (11.6-17.2) Platelet Count 241 TH/MM3 (150-450) Mean Platelet Volume 9.6 FL (7.0-11.0) Neutrophils (%) (Auto) 71.9 % (16.0-70.0) Lymphocytes (%) (Auto) 18.7 % (9.0-44.0) Monocytes (%) (Auto) 7.4 % (0.0-8.0) Eosinophils (%) (Auto) 1.1 % (0.0-4.0) Basophils (%) (Auto) 0.9 % (0.0-2.0) Neutrophils # (Auto) 7.3 TH/MM3 (1.8-7.7) Lymphocytes # (Auto) 1.9 TH/MM3 (1.0-4.8) Monocytes # (Auto) 0.7 TH/MM3 (0-0.9) Eosinophils # (Auto) 0.1 TH/MM3 (0-0.4) Basophils # (Auto) 0.1 TH/MM3 (0-0.2) CBC Comment AUTO DIFF Differential Comment AUTO DIFF CONFIRMED Target Cells 1+ (NORMAL) Ovalocytes 1+ (NORMAL) Acanthocytes 1+ (NORMAL) Keratocytes 1+ (NORMAL) Prothrombin Time 139.1 SEC 145.3 SEC (9.8-11.6) (9.8-11.6) Prothromb Time International 11.3 RATIO 11.8 RATIO Ratio Activated Partial 79.0 SEC 83.5 SEC Thromboplast Time (24.3-30.1) (24.3-30.1) Sodium Level 140 MEQ/L (136-145) Potassium Level 5.2 MEQ/L 4.9 MEQ/L (3.5-5.1) (3.5-5.1) Chloride Level 109 MEQ/L (98-107) Carbon Dioxide Level 16.6 MEQ/L (21.0-32.0) Anion Gap 14 MEQ/L (5-15) Blood Urea Nitrogen 74 MG/DL (7-18) Creatinine 3.80 MG/DL (0.60-1.30) Estimat Glomerular Filtration 15 ML/MIN (>89) Rate Random Glucose 201 MG/DL (74-106) Calcium Level 9.2 MG/DL (8.5-10.1) Magnesium Level 2.2 MG/DL (1.5-2.5) Total Bilirubin 1.1 MG/DL (0.2-1.0) Aspartate Amino Transf 65 U/L (15-37) (AST/SGOT) Alanine Aminotransferase 34 U/L (12-78) (ALT/SGPT) Alkaline Phosphatase 78 U/L (45-117) Total Creatine Kinase 187 U/L (39-308) Creatine Kinase MB 8.3 NG/ML (0.5-3.6) Troponin I 0.48 NG/ML (0.02-0.05) Total Protein 8.3 GM/DL (6.4-8.2) Albumin 3.9 GM/DL (3.4-5.0) Lipase 190 U/L (73-393) B-Type Natriuretic Peptide 420 PG/ML (0-100) Blood Type O POSITIVE Antibody Screen NEGATIVE Blood Bank Comment Test 03/03/17 03/03/17 03/04/17 03/04/17 22:35 23:05 04:35 10:12 Urine Color YELLOW (YELLW/STRAW) Urine Turbidity MOD (CLEAR) Urine pH 5.0 (5.0-8.5) Urine Specific [place] 1.022 (1.002-1.035) Urine Protein 30 mg/dL (NEG-TRACE) Urine Glucose (UA) NEG mg/dL (NEG) Urine Ketones NEG mg/dL (NEG) Urine Occult Blood LARGE (NEG) Urine Nitrite NEG (NEG) Urine Bilirubin NEG (NEG) Urine Leukocyte Esterase SMALL (NEG) Urine RBC 100-200 /hpf (0-3) Urine WBC 25-49 /hpf (0-5) Urine WBC Clumps FEW (NONE) Urine Squamous Epithelial 0-5 /hpf (0-5) Cells Urine Hyaline Casts 3-5 /lpf (RARE) Urine Coarse Granular Casts 6-9 /lpf (NONE) Urine Mucus OCC /lpf (OCC) Microscopic Urinalysis Comment CULTURE INDICATED Total Creatine Kinase 203 U/L 213 U/L (39-308) (39-308) Troponin I 2.58 NG/ML 2.99 NG/ML (0.02-0.05) (0.02-0.05) White Blood Count 10.3 TH/MM3 (4.0-11.0) Red Blood Count 2.27 MIL/MM3 (4.50-5.90) Hemoglobin 8.2 GM/DL (13.0-17.0) Hematocrit 24.9 % (39.0-51.0) Mean Corpuscular Volume 109.4 FL (80.0-100.0) Mean Corpuscular Hemoglobin 36.0 PG (27.0-34.0) Mean Corpuscular Hemoglobin 32.9 % Concent (32.0-36.0) Red Cell Distribution Width 19.7 % (11.6-17.2) Platelet Count 185 TH/MM3 (150-450) Mean Platelet Volume 8.4 FL (7.0-11.0) Neutrophils (%) (Auto) 78.8 % (16.0-70.0) Lymphocytes (%) (Auto) 12.0 % (9.0-44.0) Monocytes (%) (Auto) 7.8 % (0.0-8.0) Eosinophils (%) (Auto) 0.9 % (0.0-4.0) Basophils (%) (Auto) 0.5 % (0.0-2.0) Neutrophils # (Auto) 8.1 TH/MM3 (1.8-7.7) Lymphocytes # (Auto) 1.2 TH/MM3 (1.0-4.8) Monocytes # (Auto) 0.8 TH/MM3 (0-0.9) Eosinophils # (Auto) 0.1 TH/MM3 (0-0.4) Basophils # (Auto) 0.1 TH/MM3 (0-0.2) CBC Comment DIFF FINAL Differential Comment Sodium Level 140 MEQ/L (136-145) Potassium Level 4.4 MEQ/L (3.5-5.1) Chloride Level 110 MEQ/L (98-107) Carbon Dioxide Level 17.2 MEQ/L (21.0-32.0) Anion Gap 13 MEQ/L (5-15) Blood Urea Nitrogen 83 MG/DL (7-18) Creatinine 3.60 MG/DL (0.60-1.30) Estimat Glomerular Filtration 16 ML/MIN (>89) Rate Random Glucose 134 MG/DL (74-106) Calcium Level 9.2 MG/DL (8.5-10.1) Reticulocyte Count 4.6 % (0.4-3.0) Absolute Reticulocyte Count 100.9 MIL/L (20.0-150.0) Prothrombin Time 112.4 SEC (9.8-11.6) Prothrombin Time Control 11.1 SEC Prothromb Time International 9.2 RATIO Ratio Mix PT Normal Plasma Immediate 10.6 SEC Mix PT Normal Plasma 1 Hour 10.7 SEC Mix PT Patient/Normal 1:4 10.9 SEC Immediate (9.8-11.6) Mix PT Patient/Normal 1:1 12.5 SEC Immediate (9.8-11.6) Mix PT Patient/Normal 1:1 1 12.7 SEC Hr 37c (9.8-11.6) Mix PT Patient/Normal 4:1 18.4 SEC Immediate (9.8-11.6) PT Mixing Studies Interpretation Coagulation Factor Inhibitor Screen Iron Level 63 MCG/DL (65-175) Total Iron Binding Capacity 339 MCG/DL (250-450) Percent Iron Saturation 18.6 % (20-50) Ferritin 185 NG/ML (26-388) Lactate Dehydrogenase 329 U/L (87-241) Vitamin B12 Level 937 PG/ML (193-986) Folate 18.4 NG/ML (3.1-17.5) Rheumatoid Factor Screen NEGATIVE (NEGATIVE) Rheumatoid Factor Titer IU/ML (0.0-14.9) Test 03/05/17 03/05/17 03/05/17 03/06/17 05:03 05:12 13:02 05:21 Prothrombin Time 20.2 SEC 13.8 SEC (9.8-11.6) (9.8-11.6) Prothromb Time International 1.8 RATIO 1.2 RATIO Ratio Activated Partial 49.0 SEC 40.6 SEC Thromboplast Time (24.3-30.1) (24.3-30.1) Fibrinogen 412 mg/dL (227-377) White Blood Count 11.6 TH/MM3 (4.0-11.0) Red Blood Count 2.06 MIL/MM3 (4.50-5.90) Hemoglobin 7.4 GM/DL (13.0-17.0) Hematocrit 22.1 % (39.0-51.0) Mean Corpuscular Volume 107.5 FL (80.0-100.0) Mean Corpuscular Hemoglobin 35.9 PG (27.0-34.0) Mean Corpuscular Hemoglobin 33.4 % Concent (32.0-36.0) Red Cell Distribution Width 19.5 % (11.6-17.2) Platelet Count 181 TH/MM3 (150-450) Mean Platelet Volume 9.6 FL (7.0-11.0) Sodium Level 139 MEQ/L (136-145) Potassium Level 4.2 MEQ/L (3.5-5.1) Chloride Level 109 MEQ/L (98-107) Carbon Dioxide Level 18.2 MEQ/L (21.0-32.0) Anion Gap 12 MEQ/L (5-15) Blood Urea Nitrogen 86 MG/DL (7-18) Creatinine 3.56 MG/DL (0.60-1.30) Estimat Glomerular Filtration 16 ML/MIN (>89) Rate Random Glucose 134 MG/DL (74-106) Calcium Level 9.1 MG/DL (8.5-10.1) Phosphorus Level 4.0 MG/DL (2.5-4.9) Albumin 3.4 GM/DL (3.4-5.0) APTT Control 26.7 SEC Mix PTT Normal Plasma 26.2 SEC Immediate (24.3-30.1) Mix PTT Normal Plasma 1 Hour 27.7 SEC Mix PTT Patient/Normal 1:4 26.5 SEC Immed (24.3-30.1) Mix PTT Patient/Normal 1:1 29.4 SEC (24.3-30.1) Mix PTT Patient/Normal 1:1 1 30.8 SEC Hr 37c (24.3-30.1) Mix PTT Patient/Normal 4:1 33.8 SEC Immed (24.3-30.1) Circulating Anticoagulant PTT Intrp Coagulation Factor Inhibitor Screen Result Diagram: 03/05/17 0512 03/05/17 0512 Microbiology Microbiology Date/Time Procedure Status Source Growth 03/03/17 22:35 Urine Culture - Final Complete Urine Clean Catch <10,000 CFU/ML GRAM POSITIVE HAMLET Imaging Last Impressions Chest X-Ray 03/03/17 1755 Signed Impressions: Service Date/Time: Friday, March 03, 2017 18:45 - CONCLUSION: 1. Cardiomegaly with bibasilar airspace disease could be mild edema. 2. Increased pulmonary vascularity and previous CABG. Willy Bhatia MD Patient/Family Conference Present at Family Conference: Patient, daughter Family Conference Time (mins): 30 (minutes) Family Conference Location: Bedside Issues Discussed: Met with patient, daughter Amina at bedside. Discussion included the following: * Palliative care role, purpose, approach * Additional medical, psychosocial, history * Patients general health, functional status, and cognitive changes in the months leading up to the current hospitalization * Patient/family understanding of the current medical problems * Patient/family understanding of prognosis * Patients goals of care as best understood from advance directives and/or conversations and/or values * Current medical treatment options and benefits/burdens of those options- review of limited invasive treatment options due to kidney disease * Review of CODE STATUSaffirmed DNR status * Review of advanced directives/legal decision makers-patient may have completed advance directives may have designated one of his children he is not certain, we did review [place] statutes in absence of this documentation * Likely scenarios comparing ongoing aggressive care with a transition to comfort measures only-review of hospice services and philosophy, patient, family interested in meeting with hospice and possibly proceeding with enrollment * Questions answered to the best of my ability * Palliative care contact information provided Patient, daughter appear to have good understanding of conditions and limited treatment options. Patient had been doing quite well at home independently up until this admission, despite his advanced age and underlying conditions. They understand there are limited treatment options going forward and that he does remain risk for further cardiac events, at this time they would like to focus on comfort only and trying to avoid recurrent hospitalizations for treatments for conditions which they have limited treatment options. Hospice consultation order to be entered. Discussed with nurse, case management. . Assessment and Plan Disease Oriented Problem List: (1) CKD (chronic kidney disease), stage V (2) Anemia (3) Chest pain (4) Acute congestive heart failure (5) Atrial fibrillation with RVR (6) Elevated troponin I level (7) Acute renal failure (8) Coagulopathy (9) Unstable angina (10) CAD (coronary artery disease) Symptom Scale: (1) Chest pain Pertinent Non-Medical Issues Psychosocial:. several years ago on hospice services. Patient has lived in [place] 40+ years, prior to that lived in [place]. 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 Lives alone locally. Supported by 3 daughters, 1 son who lives in [place]. Spiritual: Voodoo Legal:Patient currently capacitated and able to participate in decision-making. Supported by 4 adult children, they think one of them might be designated as healthcare surrogate though they are not certain. Per [place] statutes without this documentation legal decision making would fall to majority of adult children. It sounds as if they would all worked together. Ethical issues impacting care: Important Contacts dtr Amina Marin ([place]) [phone] . Prognosis This patient was admitted for chest pain, found to have elevated troponin, A. fib RVR, coagulopathy being treated with vitamin K. He has CKD stage IV/V very high risk for further invasive cardiovascular interventions due to risk of renal failure. Has indicated would not want dialysis in order to pursue such measures. May be appropriate for hospice if goals compatible. . Code Status: No Code Plan * Legal decision maker:Patient currently capacitated and able to participate in decision-making. Supported by 4 adult children, they think one of them might be designated as healthcare surrogate though they are not certain. Per [place] statutes without this documentation legal decision making would fall to majority of adult children. It sounds as if they would all worked together. * Goals: Patient, daughter appear to have good understanding of conditions and limited treatment options. Patient had been doing quite well at home independently up until this admission, despite his advanced age and underlying conditions. They understand there are limited treatment options going forward and that he does remain risk for further cardiac events, at this time they would like to focus on comfort only and trying to avoid recurrent hospitalizations for treatments for conditions which they have limited treatment options. Hospice consultation order to be entered. Discussed with nurse, case management. * CODE STATUS: DNR * SYMPTOMS: --Chest pain-admitted with chest pain, elevated troponin, A. fib RVR-- reports no chest pain for the past 2 days; had utilized morphine none required for the past several days. Would benefit long-term from prn opiates if goals comfort oriented. Also potential for dyspnea accompanying this. --Constipation-some constipation just during hospital admission likely secondary to morphine use, relieved yesterday with prns, May require ongoing daily bowel regimen and/or prn if to remain on opiates Palliative care will continue to follow during hospital course as condition evolves, to assist patient/decision-maker with understanding of medical conditions, weighing benefits/burdens of treatment options, for clarification of goals of treatment. Additionally will assist with any symptoms of palliative concern Time Spent Total Floor Time (mins): 60 Thank you for the opportunity to participate in the care of Mr. Vega. Attestation To help prompt me to consider important information that might be impacting today's encounter and assessment, information from prior notes written by myself or my colleagues may have been "brought forward" into today's note. My signature on this note, however, is an attestation that I personally performed the exam, history, and/or decision-making noted today, and, unless otherwise indicated, the interactions with patient, family, and staff as well as the review of records all occurred today. I also attest that the listed assessment and stated plan reflect my best clinical judgment today based on the combination of historical information, prior notes, and today's exam/ interactions. When time spent is documented, it refers only to time spent today by the signer, or if indicated, combined time spent today by collaborating physician/nurse practitioner. Cait Hernandez Mar 06, 2017 10:27
--- NOTE | 2017-03-06 12:02 | HHI.NPPN ---
Subjective History of Present Illness 89 year old with CKD, Afib, CP Unstable Angina Objective Data Data 03/05/17 03/06/17 19:00 07:00 Intake Total 540 ml 420 ml Output Total 550 ml 500 ml Balance -10 ml -80 ml Intake Oral 540 ml 420 ml IV Total 0 ml Output Urine Total 550 ml 500 ml Emesis 0 ml # Bowel Movements 1 Vital Signs Date Time Temp Pulse Resp B/P Pulse Ox O2 Delivery O2 Flow Rate FiO2 03/06/17 11:16 95 Room Air 03/06/17 11:13 97.8 80 18 110/58 95 03/06/17 11:00 80 03/06/17 10:00 80 03/06/17 09:00 99 03/06/17 08:00 80 03/06/17 07:44 92 Room Air 03/06/17 07:41 97.9 80 18 98/50 92 03/06/17 07:00 76 03/06/17 06:00 78 03/06/17 05:00 75 03/06/17 04:00 78 03/06/17 03:51 95 Nasal Cannula 2.00 03/06/17 03:51 98.0 79 20 96/53 95 03/06/17 03:51 20 03/06/17 03:00 80 03/06/17 02:00 82 03/06/17 01:00 94 03/06/17 00:00 101 03/05/17 23:05 98.0 116 20 125/69 94 03/05/17 23:05 94 Nasal Cannula 2.00 03/05/17 23:00 116 03/05/17 22:00 108 03/05/17 21:00 110 03/05/17 20:01 98.1 130 20 120/65 93 03/05/17 20:00 111 03/05/17 20:00 130 03/05/17 20:00 93 Nasal Cannula 2.00 03/05/17 18:35 90 03/05/17 17:05 86 03/05/17 16:00 97 03/05/17 15:05 95 Room Air 03/05/17 15:04 98.3 97 18 113/57 95 03/05/17 15:01 90 03/05/17 14:00 90 03/05/17 13:00 86 03/05/17 12:00 80 -: 03/05/17 0512 03/05/17 0512 Physical Exam General Appearance: Well Developed Neck Neck Exam: Neck Supple Pulmonary Resp Exam: Decreased Bases Cardiology CV Exam: Regular Integumentary Skin Exam: Clear Extremeties Extremities Exam: No Edema Neurologic Neuro Exam: Alert Assessment/Plan Problem List: (1) Acute renal failure Plan: Patient has cardiorenal syndrome and CKD cr 3.5 last UOP Improved decrease Lasix 20 mg IV Daily Unstable angina agree he is high risk for Intervention OK to dc home from Nephrology point of view FU as out pt (2) CKD (chronic kidney disease) stage 4, GFR 15-29 ml/min Plan: Patient creatinine is slowly declining indicating acute renal failure due to cardiac decompensation Avoid nephrotoxins Patient is high risk for dye study (3) Acute congestive heart failure Plan: Diuretics ordered (4) Atrial fibrillation with RVR Plan: Cardiology is following back in NSR (5) Elevated troponin I level Plan: Will follow Donny Dior MD Mar 06, 2017 12:02
[2017-03-06 12:22] LABS: HEMATOCRIT 21.8 % (39.0-51.0); MEAN CELL VOLUME 108.1 FL (80.0-100.0); MEAN CORPUSCULAR HEMOGLOBIN 36.1 PG (27.0-34.0); MEAN CORPUSCULAR HGB CONC 33.4 % (32.0-36.0); PLATELET COUNT 183 TH/MM3 (150-450); RED BLOOD COUNT 2.02 MIL/MM3 (4.50-5.90); RED CELL DISTRIBUTION WIDTH 19.8 % (11.6-17.2); WHITE BLOOD COUNT 9.5 TH/MM3 (4.0-11.0)
[2017-03-06 12:30] LABS: REVIEW FLAG FINAL
[2017-03-06 12:45] LABS: BICARBONATE 21.8 MEQ/L (21.0-32.0); POTASSIUM 3.9 MEQ/L (3.5-5.1)
--- NOTE | 2017-03-06 13:45 | PD.ONC.PN ---
Subjective Subjective Remarks Afebrile overnight. Patient resting in room. Hoping to go home soon. No clinical bleeding. Objective Data Date Time Temp Pulse Resp B/P Pulse Ox O2 Delivery O2 Flow Rate FiO2 03/06/17 11:16 95 Room Air 03/06/17 11:13 97.8 80 18 110/58 95 03/06/17 11:00 80 03/06/17 10:00 80 03/06/17 09:00 99 03/06/17 08:00 80 03/06/17 07:44 92 Room Air 03/06/17 07:41 97.9 80 18 98/50 92 03/06/17 07:00 76 03/06/17 06:00 78 03/06/17 05:00 75 03/06/17 04:00 78 03/06/17 03:51 95 Nasal Cannula 2.00 03/06/17 03:51 98.0 79 20 96/53 95 03/06/17 03:51 20 03/06/17 03:00 80 03/06/17 02:00 82 03/06/17 01:00 94 03/06/17 00:00 101 03/05/17 23:05 98.0 116 20 125/69 94 03/05/17 23:05 94 Nasal Cannula 2.00 03/05/17 23:00 116 03/05/17 22:00 108 03/05/17 21:00 110 03/05/17 20:01 98.1 130 20 120/65 93 03/05/17 20:00 111 03/05/17 20:00 130 03/05/17 20:00 93 Nasal Cannula 2.00 03/05/17 18:35 90 03/05/17 17:05 86 03/05/17 16:00 97 03/05/17 15:05 95 Room Air 03/05/17 15:04 98.3 97 18 113/57 95 03/05/17 15:01 90 03/05/17 14:00 90 03/06/17 03/06/17 03/06/17 07:00 15:00 23:00 Intake Total 420 ml Output Total 500 ml Balance -80 ml Result Diagram: 03/06/17 1112 03/06/17 1112 Laboratory Results Laboratory Tests Test 03/06/17 03/06/17 05:21 11:12 Prothrombin Time 13.8 SEC Prothromb Time International 1.2 RATIO Ratio White Blood Count 9.5 TH/MM3 Red Blood Count 2.02 MIL/MM3 Hemoglobin 7.3 GM/DL Hematocrit 21.8 % Mean Corpuscular Volume 108.1 FL Mean Corpuscular Hemoglobin 36.1 PG Mean Corpuscular Hemoglobin 33.4 % Concent Red Cell Distribution Width 19.8 % Platelet Count 183 TH/MM3 Mean Platelet Volume 9.4 FL Sodium Level 141 MEQ/L Potassium Level 3.9 MEQ/L Chloride Level 108 MEQ/L Carbon Dioxide Level 21.8 MEQ/L Anion Gap 11 MEQ/L Blood Urea Nitrogen 83 MG/DL Creatinine 3.59 MG/DL Estimat Glomerular Filtration 16 ML/MIN Rate Random Glucose 213 MG/DL Calcium Level 8.9 MG/DL Culture Results Microbiology Date/Time Procedure Status Source Growth 03/03/17 22:35 Urine Culture - Final Complete Urine Clean Catch <10,000 CFU/ML GRAM POSITIVE HAMLET Administered Medications Medications (Trade) Dose Ordered Sig/Jass Route PRN Reason Start Time Stop Time Status Last Admin Dose Admin Sodium Chloride (NS Flush) 2 ml BID IV FLUSH 03/03/17 21:00 03/06/17 08:51 Isosorbide Mononitrate (Imdur) 30 mg DAILY@07 PO 03/05/17 07:00 03/06/17 05:53 Amiodarone HCl (Cordarone) 200 mg Q12HR PO 03/04/17 21:00 03/06/17 08:48 Metoprolol Tartrate (Lopressor) 12.5 mg Q12HR PO 03/04/17 21:00 03/06/17 08:49 Acetaminophen (Tylenol) 650 mg Q4H PRN PO PAIN 1-10 OR TEMP > 100.4F 03/05/17 14:30 03/06/17 02:51 Senna/Docusate Sodium (Katherine-Colace) 1 tab BID PO 03/05/17 21:00 03/05/17 20:22 Magnesium Hydroxide (Milk Of Magnesia Liq) 30 ml Q12H PRN PO MILD - MODERATE CONSTIPATION 03/05/17 16:45 03/05/17 18:25 Tramadol HCl (Ultram) 25 mg Q12H PRN PO pain >5 03/06/17 05:30 03/06/17 05:53 Objective Remarks GENERAL: Elderly male sitting up in chair next to bed in [employer]. SKIN: Warm and dry. HEAD: Normocephalic. EYES: No injection or drainage. NECK: Supple, trachea midline. CARDIOVASCULAR: +S1/S2 RESPIRATORY: anterior andre clear. GASTROINTESTINAL: Abdomen soft, non-tender, nondistended. EXTREMITIES: No cyanosis. trace edema. MUSCULOSKELETAL: Adequate muscle tone. NEUROLOGICAL: awake and alert, no obvious focal deficit. Assessment/Plan Problem List: (1) Coagulopathy Status: Resolved Plan: --INR 1.2 today --presented with an INR of 11.3 and repeat test showed INR 11.8. PTT is also elevated at 83.5. --no known history of coagulopathy, however, according to his daughter she had noticed the patient had easy bruising for the last one month. --no history of liver disorder. (2) Macrocytic anemia Status: Acute Plan: --is chronic. --has chronic kidney disease likely the cause for is anemia. --is seeing Dr. Pedraza and was started on Procrit about a week prior to admission. --B12 WNL --iron studies indicate low serum iron and % saturation but higher ferritin. Assessment 89y/o male admitted with chest pain, bilateral arm numbness and palpitations, found to be in afib/RVR with CHF and elevated troponin. Hematology consulted for anemia and coagulopathy. h/o Hypertension. Coronary artery disease. Chronic anemia. Chronic kidney disease. hyperlipidemia. Gastroesophageal reflux disease. Plan 1. INR 1.2 today. 2. ok to stop vitamin K 3. patient wishing to go home with hospice. pending hospice consult. Attending Statement The exam, history, and the medical decision-making described in the above note were completed with the assistance of the mid-level provider. I reviewed and agree with the findings presented. I attest that I had a [id number] encounter with the patient on the same day, and personally performed and documented my assessment and findings in the medical record. No bleeding noted. INR down to 1.2. Stop vit K. No other hematologic recommendation. I will sign off. Esperanza Whitt Mar 06, 2017 13:45 Sravan Riggs MD Mar 06, 2017 15:08
--- NOTE | 2017-03-06 16:08 | PD.CARD.PN ---
Subjective Subjective Remarks No recurrent angina, stays in SR on amio, denies SOB, wants to go home Objective Medications Current Medications Medications (Trade) Dose Ordered Sig/Jass Route Start Time Stop Time Status Last Admin (NS Flush) 2 ml UNSCH PRN IV FLUSH 03/03/17 21:00 (NS Flush) 2 ml BID IV FLUSH 03/03/17 21:00 03/06/17 08:51 (Narcan Inj) 0.4 mg UNSCH PRN IV 03/03/17 21:00 (Imdur) 30 mg DAILY@07 PO 03/05/17 07:00 03/06/17 05:53 (Cordarone) 200 mg Q12HR PO 03/04/17 21:00 03/06/17 08:48 (Lopressor) 12.5 mg Q12HR PO 03/04/17 21:00 03/06/17 08:49 (Tylenol) 650 mg Q4H PRN PO 03/05/17 14:30 03/06/17 02:51 (Katherine-Colace) 1 tab BID PO 03/05/17 21:00 03/05/17 20:22 (Milk Of Magnesia Liq) 30 ml Q12H PRN PO 03/05/17 16:45 03/05/17 18:25 (Senokot) 17.2 mg Q12H PRN PO 03/05/17 16:45 (Dulcolax Supp) 10 mg DAILY PRN RECTAL 03/05/17 16:45 (Lactulose Liq) 30 ml DAILY PRN PO 03/05/17 16:45 (Ultram) 25 mg Q12H PRN PO 03/06/17 05:30 03/06/17 05:53 (Lasix) 40 mg DAILY PO 03/07/17 09:00 Vital Signs / I&O Vital Signs Date Time Temp Pulse Resp B/P Pulse Ox O2 Delivery O2 Flow Rate FiO2 03/06/17 14:00 80 03/06/17 13:00 84 03/06/17 12:00 86 03/06/17 11:16 95 Room Air 03/06/17 11:13 97.8 80 18 110/58 95 03/06/17 11:00 80 03/06/17 10:00 80 03/06/17 09:00 99 03/06/17 08:00 80 03/06/17 07:44 92 Room Air 03/06/17 07:41 97.9 80 18 98/50 92 03/06/17 07:00 76 03/06/17 06:00 78 03/06/17 05:00 75 03/06/17 04:00 78 03/06/17 03:51 95 Nasal Cannula 2.00 03/06/17 03:51 98.0 79 20 96/53 95 03/06/17 03:51 20 03/06/17 03:00 80 03/06/17 02:00 82 03/06/17 01:00 94 03/06/17 00:00 101 03/05/17 23:05 98.0 116 20 125/69 94 03/05/17 23:05 94 Nasal Cannula 2.00 03/05/17 23:00 116 03/05/17 22:00 108 03/05/17 21:00 110 03/05/17 20:01 98.1 130 20 120/65 93 03/05/17 20:00 111 03/05/17 20:00 130 03/05/17 20:00 93 Nasal Cannula 2.00 03/05/17 18:35 90 03/05/17 17:05 86 I/O 03/05/17 03/05/17 03/05/17 03/06/17 03/06/17 03/06/17 06:59 14:59 22:59 06:59 14:59 22:59 Intake Total 492 ml 540 ml 420 ml Output Total 775 ml 550 ml 500 ml Balance -283 ml -10 ml -80 ml Intake Oral 240 ml 540 ml 420 ml IV Total 252 ml 0 ml Output Urine Total 775 ml 550 ml 500 ml Emesis 0 ml # Bowel Movements 0 1 Physical Exam GENERAL: In NAD SKIN: Warm and dry. HEAD: Normocephalic. EYES: No scleral icterus. No injection or drainage. NECK: Supple, trachea midline. No JVD or lymphadenopathy. CARDIOVASCULAR: Regular rate and rhythm without murmurs, gallops, or rubs. RESPIRATORY: Breath sounds equal bilaterally. No accessory muscle use. GASTROINTESTINAL: Abdomen soft, non-tender, nondistended. MUSCULOSKELETAL: No cyanosis, or edema. Laboratory Laboratory Tests Test 03/06/17 03/06/17 05:21 11:12 Prothrombin Time 13.8 SEC Prothromb Time International 1.2 RATIO Ratio White Blood Count 9.5 TH/MM3 Red Blood Count 2.02 MIL/MM3 Hemoglobin 7.3 GM/DL Hematocrit 21.8 % Mean Corpuscular Volume 108.1 FL Mean Corpuscular Hemoglobin 36.1 PG Mean Corpuscular Hemoglobin 33.4 % Concent Red Cell Distribution Width 19.8 % Platelet Count 183 TH/MM3 Mean Platelet Volume 9.4 FL Sodium Level 141 MEQ/L Potassium Level 3.9 MEQ/L Chloride Level 108 MEQ/L Carbon Dioxide Level 21.8 MEQ/L Anion Gap 11 MEQ/L Blood Urea Nitrogen 83 MG/DL Creatinine 3.59 MG/DL Estimat Glomerular Filtration 16 ML/MIN Rate Random Glucose 213 MG/DL Calcium Level 8.9 MG/DL Imaging Last Impressions Chest X-Ray 03/03/17 0640 Signed Impressions: Service Date/Time: Friday, March 03, 2017 18:45 - CONCLUSION: 1. Cardiomegaly with bibasilar airspace disease could be mild edema. 2. Increased pulmonary vascularity and previous CABG. Willy Bhatia MD Assessment and Plan Problem List: (1) Unstable angina (2) CAD (coronary artery disease) (3) CKD (chronic kidney disease) stage 4, GFR 15-29 ml/min (4) Atrial fibrillation with RVR (5) Acute congestive heart failure (6) Elevated troponin I level Assessment and Plan No recurrent angina. Continue antianginal therapy. If necessary, will titrate Imdur and possibly add Ranexa. Continue amio loading for AF, no recurrence. Increase activity. He has very high risk of contrast nephropathy, conservative therapy will be pursued unless unstable cardiac symptoms develop. DC home. Will schedule outpt f/u next week. Alyse Ramirez MD Mar 06, 2017 16:08
[2017-03-06] MEDS ORDERED: ULTR50TA5 PO (16:24)
[2017-03-06] MEDS ORDERED: AMIO200T PO (16:24)
[2017-03-06] MEDS ORDERED: FURO40TA PO (16:24)
[2017-03-06] MEDS ORDERED: METO25TA3 PO (16:24)
--- NOTE | 2017-03-06 16:29 | HHI.DCPOC ---
Discharge Care Plan Diagnosis: (1) Unstable angina (2) NSTEMI (non-ST elevated myocardial infarction) Your Health Problems Are: Chest Pain Goals to Promote Your Health * To prevent worsening of your condition and complications * To maintain your health at the optimal level Directions to Meet Your Goals Take your medications as prescribed Follow your dietary instruction Follow activity as directed Keep your appointments as scheduled Take your immunizations and boosters as scheduled If your symptoms worsen call your PCP, if no PCP go to Urgent Care Center or Emergency Room Smoking is Dangerous to Your Health. Avoid second hand smoke Call the 24-hour hour crisis hotline for domestic abuse at Libertad Rivera MD Mar 06, 2017 16:29
--- NOTE | 2017-03-06 16:35 | HHI.DS ---
Discharge Summary Admission Date Mar 03, 2017 at 19:55 Discharge Date: Mar 06, 2017 Admitting Diagnosis chest pain. A. fib with RVR. Chronic kidney disease. Metabolic ac (1) NSTEMI (non-ST elevated myocardial infarction) ICD Code: I21.4 Diagnosis: Principal (2) Atrial fibrillation with RVR ICD Code: I48.91 Diagnosis: Principal (3) Acute congestive heart failure ICD Code: I50.9 Diagnosis: Secondary (4) Elevated troponin I level ICD Code: R74.8 Diagnosis: Secondary Procedures None Brief History - From Admission Obtained from admitting physician's H and P 89 y/o M [facility] with bilateral arms numb and painful and c/o palpitations associated with Productive cough; hemoptysis today only along with Nausea/ vomiting. She also complained of epigastric pain but denies black or bloody stool. He takes aspirin at home. CBC/BMP: 03/06/17 1112 03/06/17 1112 Significant Findings Laboratory Tests Test 03/03/17 03/03/17 03/03/17 03/03/17 17:55 19:05 19:32 22:35 Red Blood Count 2.51 MIL/MM3 (4.50-5.90) Hemoglobin 8.6 GM/DL (13.0-17.0) Hematocrit 26.8 % (39.0-51.0) Mean Corpuscular Volume 106.9 FL (80.0-100.0) Mean Corpuscular Hemoglobin 34.5 PG (27.0-34.0) Red Cell Distribution Width 19.8 % (11.6-17.2) Neutrophils (%) (Auto) 71.9 % (16.0-70.0) Target Cells 1+ (NORMAL) Ovalocytes 1+ (NORMAL) Acanthocytes 1+ (NORMAL) Keratocytes 1+ (NORMAL) Prothrombin Time 139.1 SEC 145.3 SEC (9.8-11.6) (9.8-11.6) Prothromb Time International 11.3 RATIO 11.8 RATIO Ratio Activated Partial 79.0 SEC 83.5 SEC Thromboplast Time (24.3-30.1) (24.3-30.1) Potassium Level 5.2 MEQ/L (3.5-5.1) Chloride Level 109 MEQ/L (98-107) Carbon Dioxide Level 16.6 MEQ/L (21.0-32.0) Blood Urea Nitrogen 74 MG/DL (7-18) Creatinine 3.80 MG/DL (0.60-1.30) Estimat Glomerular Filtration 15 ML/MIN (>89) Rate Random Glucose 201 MG/DL (74-106) Total Bilirubin 1.1 MG/DL (0.2-1.0) Aspartate Amino Transf 65 U/L (15-37) (AST/SGOT) Creatine Kinase MB 8.3 NG/ML (0.5-3.6) Troponin I 0.48 NG/ML (0.02-0.05) Total Protein 8.3 GM/DL (6.4-8.2) B-Type Natriuretic Peptide 420 PG/ML (0-100) Urine Turbidity MOD (CLEAR) Urine Protein 30 mg/dL (NEG-TRACE) Urine Occult Blood LARGE (NEG) Urine Leukocyte Esterase SMALL (NEG) Urine RBC 100-200 /hpf (0-3) Urine WBC 25-49 /hpf (0-5) Urine WBC Clumps FEW (NONE) Urine Hyaline Casts 3-5 /lpf (RARE) Test 03/03/17 03/04/17 03/04/17 03/05/17 23:05 04:35 10:12 05:03 Troponin I 2.58 NG/ML 2.99 NG/ML (0.02-0.05) (0.02-0.05) Red Blood Count 2.27 MIL/MM3 (4.50-5.90) Hemoglobin 8.2 GM/DL (13.0-17.0) Hematocrit 24.9 % (39.0-51.0) Mean Corpuscular Volume 109.4 FL (80.0-100.0) Mean Corpuscular Hemoglobin 36.0 PG (27.0-34.0) Red Cell Distribution Width 19.7 % (11.6-17.2) Neutrophils (%) (Auto) 78.8 % (16.0-70.0) Neutrophils # (Auto) 8.1 TH/MM3 (1.8-7.7) Chloride Level 110 MEQ/L (98-107) Carbon Dioxide Level 17.2 MEQ/L (21.0-32.0) Blood Urea Nitrogen 83 MG/DL (7-18) Creatinine 3.60 MG/DL (0.60-1.30) Estimat Glomerular Filtration 16 ML/MIN (>89) Rate Random Glucose 134 MG/DL (74-106) Reticulocyte Count 4.6 % (0.4-3.0) Prothrombin Time 112.4 SEC 20.2 SEC (9.8-11.6) (9.8-11.6) Prothromb Time International 9.2 RATIO Ratio Mix PT Patient/Normal 1:1 12.5 SEC Immediate (9.8-11.6) Mix PT Patient/Normal 1:1 1 12.7 SEC Hr 37c (9.8-11.6) Mix PT Patient/Normal 4:1 18.4 SEC Immediate (9.8-11.6) Iron Level 63 MCG/DL (65-175) Percent Iron Saturation 18.6 % (20-50) Lactate Dehydrogenase 329 U/L (87-241) Folate 18.4 NG/ML (3.1-17.5) Methylmalonic Acid 0.89 nmol/mL (<=0.40) Activated Partial 49.0 SEC Thromboplast Time (24.3-30.1) Fibrinogen 412 mg/dL (227-377) Test 03/05/17 03/05/17 03/06/17 03/06/17 05:12 13:02 05:21 11:12 White Blood Count 11.6 TH/MM3 (4.0-11.0) Red Blood Count 2.06 MIL/MM3 2.02 MIL/MM3 (4.50-5.90) (4.50-5.90) Hemoglobin 7.4 GM/DL 7.3 GM/DL (13.0-17.0) (13.0-17.0) Hematocrit 22.1 % 21.8 % (39.0-51.0) (39.0-51.0) Mean Corpuscular Volume 107.5 FL 108.1 FL (80.0-100.0) (80.0-100.0) Mean Corpuscular Hemoglobin 35.9 PG 36.1 PG (27.0-34.0) (27.0-34.0) Red Cell Distribution Width 19.5 % 19.8 % (11.6-17.2) (11.6-17.2) Chloride Level 109 MEQ/L 108 MEQ/L (98-107) (98-107) Carbon Dioxide Level 18.2 MEQ/L (21.0-32.0) Blood Urea Nitrogen 86 MG/DL (7-18) 83 MG/DL (7-18) Creatinine 3.56 MG/DL 3.59 MG/DL (0.60-1.30) (0.60-1.30) Estimat Glomerular Filtration 16 ML/MIN (>89) 16 ML/MIN (>89) Rate Random Glucose 134 MG/DL 213 MG/DL (74-106) (74-106) Activated Partial 40.6 SEC Thromboplast Time (24.3-30.1) Mix PTT Patient/Normal 1:1 1 30.8 SEC Hr 37c (24.3-30.1) Mix PTT Patient/Normal 4:1 33.8 SEC Immed (24.3-30.1) Prothrombin Time 13.8 SEC (9.8-11.6) Imaging Last Impressions Chest X-Ray 03/03/17 0566 Signed Impressions: Service Date/Time: Friday, March 03, 2017 18:45 - CONCLUSION: 1. Cardiomegaly with bibasilar airspace disease could be mild edema. 2. Increased pulmonary vascularity and previous CABG. Willy Bhatia MD PE at Discharge GENERAL: This is a well-nourished, well-developed patient, in no apparent distress. CARDIOVASCULAR: Regular rate and irregular rhythm RESPIRATORY: Clear to auscultation. Breath sounds equal bilaterally. No wheezes , rales, or rhonchi. GASTROINTESTINAL: Abdomen soft, non-tender, nondistended. Normal, active bowel sounds MUSCULOSKELETAL: Extremities without clubbing, cyanosis, trace edema NEURO: Alert & Oriented x2 to person, place. 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 Due to his chronic kidney disease stage IV high risks of nephrotoxicity with further aggressive treatment, both patient and family desire conservative treatment of this hospitalization. He was seen by sewing machine tester Dr. yang. He also presented with atrial fibrillation with rapid ventricular right now rate controlled with amiodarone and metoprolol. Palliative care services was consulted to discuss goals of conservative treatment future long-term goals concerning comfort measures. At this time, the family and patient would like to be discharged home with hospice, [facility]. CHF, acute systolic - Chest x-ray personally reviewed and shows bibasilar airspace disease consistent with pulmonary edema, IV Lasix and started. Supratherapeutic INR on presentation with consultation to hematology service. This time vitamin K was given and INR has improved. Due to his hospice status and allergies are comfort measures, statin will not be restarted upon discharge to home. Pt Condition on Discharge: Good Discharge Disposition: Hospice/ Home Discharge Time: <= 30 minutes Discharge Instructions DIET: Follow Instructions for: Heart Healthy Diet Activities you can perform: Regular-No Restrictions Follow up Referrals: Appointment for Follow Up @ hospice New Medications: Amiodarone (Amiodarone) 200 Mg Tab 200 MG PO Q12HR Regulate Heart Beat #60 TAB Furosemide (Furosemide) 40 Mg Tab 40 MG PO DAILY decrease swelling #30 TAB Metoprolol Tartrate (Metoprolol Tartrate) 25 Mg Tab 12.5 MG PO Q12HR Regulate Heart Beat #60 TAB Tramadol (Ultram) 50 Mg Tab 25 MG PO Q12H PRN pain #30 TAB Continued Medications: Aspirin DR (Aspirin 81) 81 Mg Tabdr 81 MG PO DAILY Ref 0 TAB Cholecalciferol (Vitamin D3) 1,000 Unit Tab 5000 UNITS PO DAILY Nutritional Supplement #1 Ref 0 BOTTLE Isosorbide Mononitrate (Isosorbide Mononitrate) 20 Mg Tab 30 MG PO DAILY Take 2 doses 7 hours apart. Prevent Chest Pain #60 Ref 0 TAB Nitroglycerin SL (Nitrostat SL) 0.4 Mg Subl 0.4 MG SL DIRECTED 1 tablet under the tongue as needed for chest pain. Repeat every 5 minutes for a total of 3 DOSES or call 911 if NO relief. PRN CHEST PAIN #100 Ref 0 TAB.SL Ranitidine (Zantac) 150 Mg Tab 150 MG PO DAILY Reduce Stomach Acid #30 Ref 0 TAB Discontinued Medications: Amlodipine (Amlodipine) 5 Mg Tab 5 MG PO DAILY Blood Pressure Management #30 Ref 0 TAB Atorvastatin (Atorvastatin) 80 Mg Tab 80 MG PO HS Cholesterol Management #30 Ref 0 TAB Metoprolol Tartrate (Metoprolol Tartrate) 25 Mg Tab 25 MG PO BID #30 Ref 0 TAB Libertad Rivera MD Mar 06, 2017 16:35 Libertad Rivera MD Mar 06, 2017 16:35
[2017-03-07] MEDS ORDERED: FUROSEMIDE 40 MG TAB PO SCH (09:00)
== END 2017-03-06 17:04 | disposition home or self-care (01) | DRG 280 ==
LOC: PHED 17:44 → PHEDA 19:55 → PHEDH 23:55 → HCIS 03-04 01:29
PROVIDERS: ADMIT Family Medicine; ATTEND Family Medicine
DX: I21.4 Non-ST elevation (NSTEMI) myocardial infarction (principal); I50.21 Acute systolic (congestive) heart failure; N17.9 Acute kidney failure, unspecified; E87.2 Acidosis; I27.2 Other secondary pulmonary hypertension; N18.5 Chronic kidney disease, stage 5; I13.2 Hypertensive heart and chronic kidney disease with heart failure and with stage 5 chronic kidney disease, or end stage renal disease; I48.0 Paroxysmal atrial fibrillation; D53.9 Nutritional anemia, unspecified; I25.110 Atherosclerotic heart disease of native coronary artery with unstable angina pectoris; R79.1 Abnormal coagulation profile; Z51.5 Encounter for palliative care; E78.5 Hyperlipidemia, unspecified; K21.9 Gastro-esophageal reflux disease without esophagitis; I34.0 Nonrheumatic mitral (valve) insufficiency; D63.1 Anemia in chronic kidney disease; K59.00 Constipation, unspecified; Z79.82 Long term (current) use of aspirin; Z95.1 Presence of aortocoronary bypass graft; Z95.5 Presence of coronary angioplasty implant and graft; Z66 Do not resuscitate
CPT/HCPCS: 71010; 80048; 80053; 80069; 81001; 82550; 82552; 82607; 82728; 82746; 83540; 83550; 83615; 83690; 83735; 83880; 83921; 84132; 84484; 85025; 85027; 85044; 85335; 85384; 85610; 85730; 86038; 86430; 86850; 86900; 86901; 87086; 93005; 96374; 96375; C9113; J1940; J2270; J3430